=== PATIENT | female | born 1935 | race Hispanic/Latino ===

== ENCOUNTER 2017-06-14 20:27 | Observation (INO) | payer OTHER ==
[~2017-06-14] VITALS: Ht 175.3 cm; Wt 81.6 kg
[2017-06-14 21:59] LABS: BASOPHILS % (AUTO) 0.6 % (0.0-5.0); EOSINOPHILS % (AUTO) 1.7 % (0.0-8.0); LYMPHOCYTES % (AUTO) 28.2 % (21.0-51.0); MEAN CORPUSCULAR HEMOGLOBIN 28.4 pg (27.0-33.0); MEAN CORPUSCULAR HGB CONC 34.5 g/dL (32.0-36.0); MEAN CORPUSCULAR VOLUME 82.2 fL (79-99); NEUTROPHILS % (AUTO) 63.5 % (40.0-77.0); PLATELET COUNT (AUTO) 219 K/uL (130-400); RED BLOOD CELL COUNT(AUTO) 3.64 MIL/uL (4.00-5.50); WHITE BLOOD COUNT (AUTO) 8.8 K/uL (4.8-10.8)
[2017-06-14 22:12] LABS: INR 1.02 (0.85-1.15); PARTIAL THROMBOPLASTIN TIME 25.8 SEC (26.3-35.5); PROTHROMBIN TIME 10.7 SEC (9.6-11.6)
[2017-06-14 22:25] LABS: CARBON DIOXIDE 27 mmol/L (21-32); CHLORIDE 101 mmol/L (101-111); GLOMERULAR FILTR. RATE CALC 56 mL/min (>60); GLUCOSE,RANDOM 103 mg/dL (70-105); POTASSIUM 3.7 mmol/L (3.5-5.1); SODIUM SERUM 139 mmol/L (136-145); UREA NITROGEN, BLOOD 14 mg/dL (7-18)
[2017-06-14] MEDS ORDERED: LABETALOL HCL 5 MG/ML 20ML VIAL IV ONE (22:38)
[2017-06-14] MEDS ORDERED: SODIUM CHLORIDE 0.9% 1000ML 1,000 ML IV ONE (22:38)
[2017-06-14 22:39] LABS: ALANINE AMINOTRANSFERASE 17 U/L (12-78); ALBUMIN 3.4 g/dL (3.5-5.0); ASPARTATE AMINOTRANSFERASE 23 U/L (10-37); BILIRUBIN,TOTAL 0.6 mg/dL (0.2-1.0); CREATINE KINASE MB < 0.5 ng/mL (0.5-3.6); CREATINE KINASE, TOTAL 38 U/L (21-232); TOTAL PROTEIN, SERUM 7.5 g/dL (6.0-8.3)
[2017-06-14 22:51] LABS: APPEARANCE,URINE Clear (CLEAR); BILIRUBIN,URINE Negative (NEGATIVE); COLOR,URINE Yellow (YELLOW); GLUCOSE, URINE (UA) Negative (NEGATIVE); KETONES,URINE Trace mg/dL (NEGATIVE); LEUKOCYTE ESTERASE ,URINE Negative (NEGATIVE); NITRATE,URINE Negative (NEGATIVE); OCCULT BLOOD,URINE Trace (NEGATIVE); PH,URINE 7.5 (5.0-8.0); PROTEIN,URINE POS 1+ (NEGATIVE); UROBILINOGEN,URINE 0.2 mg/dL (0.2-1.0)
[2017-06-14] MEDS ORDERED: ISOVUE-370 50ML VIAL IV ONE (23:03)
[2017-06-14 23:04] LABS: BACTERIA,URINE None Seen /HPF (None Seen); SQUAMOUS EPITHELIAL CELL,UR Few /LPF (0-2); WBC,URINE None Seen /HPF (0-1)
[2017-06-15] VITALS (8 sets, daily range): BP systolic 136–196; BP diastolic 51–88
[2017-06-15] MEDS ORDERED: FERR-82 PO (01:36)
[2017-06-15] MEDS ORDERED: ASCO10007 PO (01:36)
[2017-06-15] MEDS ORDERED: FISH1CAP50 PO (01:36)
[2017-06-15] MEDS ORDERED: VITA1CAP85 PO (01:36)
[2017-06-15] MEDS ORDERED: AEC81 PO (01:36)
[2017-06-15] MEDS ORDERED: CHOL100040 PO (01:36)
[2017-06-15] MEDS ORDERED: FOLI0.8C PO (01:36)
[2017-06-15] MEDS ORDERED: MULT-1296 PO (01:36)
[2017-06-15] MEDS ORDERED: WARF7.5T23 PO (01:36)
[2017-06-15] MEDS ORDERED: PRAV10TA39 PO (01:36)
[2017-06-15] MEDS ORDERED: CALC1TAB3 PO (01:36)
[2017-06-15] MEDS ORDERED: CYAN50008 PO (01:36)
[2017-06-15] MEDS ORDERED: FOLI1TAB85 PO (01:36)
[2017-06-15] MEDS ORDERED: POTASSIUM CHLORIDE 20 MEQ ERTAB PO PRN (02:00)
[2017-06-15] MEDS ORDERED: POTASSIUM CHLORIDE 20MEQ/100ML 100 ML IV PRN (02:00)
[2017-06-15] MEDS ORDERED: ACETAMINOPHEN 325 MG TAB PO PRN ×2 (02:00)
[2017-06-15] MEDS ORDERED: LACTULOSE 20 GM/30 ML UDCUP PO PRN (02:00)
[2017-06-15] MEDS ORDERED: DEXTROSE 50%-WATER 50 ML DISP.SYRIN IV PRN (02:00)
[2017-06-15] MEDS ORDERED: HYDRALAZINE HCL 20 MG/ML VIAL IV PRN (02:00)
[2017-06-15] MEDS ORDERED: POTASSIUM CHLORIDE 10% ELIXIR 20 MEQ/15 ML UDCUP PO PRN (02:00)
[2017-06-15] MEDS ORDERED: ONDANSETRON HCL 4 MG/2 ML VIAL IVP PRN (02:00)
[2017-06-15] MEDS ORDERED: LIDOCAINE HCL-MPF 1% 2ML VIAL IJ PRN (02:00)
[2017-06-15] MEDS ORDERED: GLUCAGON 1MG KIT 1 MG ML IM PRN (02:00)
[2017-06-15] MEDS ORDERED: NITROGLYCERIN 0.4 MG SL TAB SL PRN (02:00)
[2017-06-15 04:44] LABS: HEMATOCRIT 27.7 % (36-48); MEAN CORPUSCULAR HEMOGLOBIN 27.2 pg (27.0-33.0); MEAN CORPUSCULAR HGB CONC 33.4 g/dL (32.0-36.0); MEAN CORPUSCULAR VOLUME 81.6 fL (79-99); PLATELET COUNT (AUTO) 186 K/uL (130-400); RED BLOOD CELL COUNT(AUTO) 3.39 MIL/uL (4.00-5.50); RED CELL DISTRIBUTION WIDTH 14.9 % (11.0-15.5); WHITE BLOOD COUNT (AUTO) 6.8 K/uL (4.8-10.8)
[2017-06-15 04:48] LABS: CREATININE 0.9 mg/dL (0.5-1.5); POTASSIUM 3.8 mmol/L (3.5-5.1)
[2017-06-15] MEDS: INSULIN R PO SS1 SQ SCH ×3 (06:11→16:15)
[2017-06-15] MEDS ORDERED: CYANOCOBALAMIN 5000 MCG PO SCH (09:00)
[2017-06-15] MEDS ORDERED: VITAMIN B COMPLEX 1 CAPSULE PO SCH (09:00)
[2017-06-15] MEDS ORDERED: FE FUMARATE/FA/MV, MIN COMB#15 1 TAB PO SCH (09:00)
[2017-06-15] MEDS ORDERED: FOLIC ACID 0.8 MG PO SCH (09:00)
[2017-06-15] MEDS ORDERED: ASPIRIN 81 MG EC TAB PO SCH (09:00)
[2017-06-15] MEDS ORDERED: CALCIUM 600 + VITAMIN D 400 TABLET PO SCH (09:00)
[2017-06-15] MEDS ORDERED: CHOLECALCIFEROL 1000 UNIT PO SCH (09:00)
[2017-06-15] MEDS ORDERED: ASCORBIC ACID 500 MG TAB PO SCH (09:02)
[2017-06-15] MEDS ORDERED: LOSARTAN 50 MG TABLET PO SCH (10:15)
[2017-06-15] MEDS ORDERED: LOSA50TA37 PO (10:17)
[2017-06-15] MEDS ORDERED: WARFARIN SODIUM 7.5 MG TAB PO SCH (17:00)
[2017-06-15] MEDS ORDERED: ATORVASTATIN CALCIUM 10 MG TABLET PO SCH (21:00)
[2017-06-16] MEDS ORDERED: FERROUS SULFATE 325 MG TABLET.DR PO SCH (09:00)
[2017-06-16] MEDS ORDERED: FISH OIL 1000 MG/CAP PO SCH (09:00)
[2017-06-16] MEDS ORDERED: VITAMIN B COMPLEX 1 CAPSULE PO SCH (09:00)
[2017-06-16] MEDS ORDERED: LOSARTAN 50 MG TABLET PO SCH (09:00)
== END 2017-06-15 18:45 | disposition home or self-care (01) ==
LOC: EDH 20:27 → INTOOBSV 23:30 → EDHIP 23:30 → 2DH 06-15 00:58
PROVIDERS: ADMIT Internal Medicine; ATTEND Internal Medicine
DX: I16.0 Hypertensive urgency (principal); I13.0 Hypertensive heart and chronic kidney disease with heart failure and stage 1 through stage 4 chronic kidney disease, or unspecified chronic kidney disease; N18.9 Chronic kidney disease, unspecified; I50.42 Chronic combined systolic (congestive) and diastolic (congestive) heart failure; I25.2 Old myocardial infarction; I25.10 Atherosclerotic heart disease of native coronary artery without angina pectoris; I48.91 Unspecified atrial fibrillation; E78.5 Hyperlipidemia, unspecified; M81.0 Age-related osteoporosis without current pathological fracture; G93.9 Disorder of brain, unspecified; Z79.01 Long term (current) use of anticoagulants
CPT/HCPCS: 36415 ×2; 70450; 70460; 71045; 80048; 80053; 81001; 82550; 82553; 82948 ×3; 83880; 85025; 85027; 85610; 85730; 93005; 96374; 99285; G0378 ×19; J0360 ×2; J3490; J7030; Q9967

== ENCOUNTER → 2018-09-25 | Outpatient (CLI) | payer OTHER ==
[~2018-09-25] MED LIST: AEC81 PO; ASCO10007 PO; CALC1TAB3 PO; CHOL100040 PO; CYAN50008 PO; FERR-82 PO; FISH1CAP50 PO; FOLI0.8C PO; FOLI1TAB85 PO; LOSA50TA64 PO; MULT-1296 PO; PRAV10TA39 PO; VITA1CAP85 PO; WARF7.5T23 PO
== END | disposition home or self-care (01) ==
LOC: RAH 11:12
PROVIDERS: ATTEND Neuromusculoskeletal Medicine & OMM
DX: G31.89 Other specified degenerative diseases of nervous system (principal); R90.82 White matter disease, unspecified; G93.89 Other specified disorders of brain
CPT/HCPCS: 70450

== ENCOUNTER → 2018-11-16 | Outpatient (CLI) | payer OTHER ==
[~2018-11-16] MED LIST changes: +APIX5TAB PO; +CEPH250C2 PO; +HYDR25TA PO; +MECL-111 PO; +MECL12.585 PO
== END | disposition home or self-care (01) ==
LOC: RAH 09:00
PROVIDERS: ATTEND Internal Medicine Cardiovascular Disease
DX: I08.0 Rheumatic disorders of both mitral and aortic valves (principal); I25.2 Old myocardial infarction
CPT/HCPCS: 93306

== ENCOUNTER 2019-08-20 20:44 | Inpatient (IN) | payer OTHER, MEDICARE ==
[~2019-08-20] VITALS: Ht 175.3 cm; Wt 84.2 kg
[~2019-08-20 20:44] MED LIST changes: -AEC81 PO; +ASCO100031 PO; -ASCO10007 PO; -FOLI1TAB85 PO; -MECL-111 PO; +MECL-160 PO; +MECL-183 PO; -MECL12.585 PO; -WARF7.5T23 PO
[2019-08-20] MEDS ORDERED: LIDOCAINE HCL 2% VISCOUS 15 ML UDCUP ONE (21:33)
[2019-08-20] MEDS ORDERED: MAG HYDROX/AL HYDROX/SIMETH ES 30 ML SUSP UDCUP ONE (21:33)
[2019-08-20] MEDS ORDERED: FAMOTIDINE/PF 20 MG/2 ML VIAL IV ONE (21:35)
[2019-08-20 21:36] LABS: BASOPHILS % (AUTO) 0.5 % (0.0-5.0); EOSINOPHILS % (AUTO) 2.6 % (0.0-8.0); HEMATOCRIT 32.5 % (36-48); LYMPHOCYTES % (AUTO) 48.8 % (21.0-51.0); MEAN CORPUSCULAR HEMOGLOBIN 27.7 pg (27.0-33.0); MEAN CORPUSCULAR HGB CONC 32.6 g/dL (32.0-36.0); MEAN CORPUSCULAR VOLUME 85.1 fL (79-99); MONOCYTES % (AUTO) 8.6 % (3.0-13.0); NEUTROPHILS % (AUTO) 39.3 % (40.0-77.0); PLATELET COUNT (AUTO) 209 K/uL (130-400); RED BLOOD CELL COUNT(AUTO) 3.82 MIL/uL (4.00-5.50); RED CELL DISTRIBUTION WIDTH 13.4 % (11.0-15.5); WHITE BLOOD COUNT (AUTO) 9.3 K/uL (4.8-10.8)
[2019-08-20 21:57] LABS: APPEARANCE,URINE Clear (CLEAR); BILIRUBIN,URINE Negative (NEGATIVE); COLOR,URINE Orange (YELLOW); CREATININE 1.3 mg/dL (0.5-1.5); GLUCOSE, URINE (UA) Negative (NEGATIVE); KETONES,URINE Trace mg/dL (NEGATIVE); LEUKOCYTE ESTERASE ,URINE Small (NEGATIVE); NITRATE,URINE Negative (NEGATIVE); OCCULT BLOOD,URINE Negative (NEGATIVE); POTASSIUM 3.9 mmol/L (3.5-5.1); PROTEIN,URINE POS 1+ mg/dL (NEGATIVE)
[2019-08-20 22:01] LABS: ALBUMIN 3.6 g/dL (3.5-5.0); BILIRUBIN,TOTAL 0.2 mg/dL (0.2-1.0); TOTAL PROTEIN, SERUM 7.7 g/dL (6.0-8.3)
[2019-08-20 22:21] LABS: RBC,URINE 0-1 /HPF (0-1)
[2019-08-20 22:22] LABS: BACTERIA,URINE Rare /HPF (None Seen); HYALINE CASTS, URINE 0-1 /LPF (0-1 /LPF); SQUAMOUS EPITHELIAL CELL,UR Rare /HPF (0-2)
[2019-08-21] MEDS ORDERED: MORPHINE SULFATE 2 MG/ML 1ML SYG IV PRN (00:30)
[2019-08-21] MEDS ORDERED: HYDRALAZINE HCL 20 MG/ML VIAL IV PRN (00:30)
[2019-08-21] MEDS ORDERED: NITROGLYCERIN 0.4 MG SL TAB SL PRN (00:30)
[2019-08-21] MEDS ORDERED: ONDANSETRON HCL 4 MG/2 ML VIAL IV PRN (00:30)
[2019-08-21] MEDS ORDERED: ACETAMINOPHEN 325 MG TAB PO PRN ×2 (00:30)
[2019-08-21] MEDS ORDERED: LACTULOSE 20 GM/30 ML UDCUP PO PRN (00:30)
[2019-08-21 01:24] LABS: THYROID STIMULATING HORMONE 2.81 uIU/mL (0.36-3.74)
[2019-08-21 01:50] VITALS: BP 153/68
--- NOTE | 2019-08-21 02:00 | NUR ---
PATIENT ARRIVED ON UNIT. ALERT AND ORIENTED. PATIENT DENIES CHEST PAIN,INDIGESTION, OR SOB. RESTING COMFORTABLY. CALL LIGHT WITHIN REACH. HOME MEDS TO BE BROUGHT IN BY FAMILY.
[2019-08-21 04:00] VITALS: BP 143/63
[2019-08-21 04:31] LABS: BASOPHILS % (AUTO) 0.3 % (0.0-5.0); HEMATOCRIT 29.6 % (36-48); MEAN CORPUSCULAR HEMOGLOBIN 27.7 pg (27.0-33.0); MEAN CORPUSCULAR HGB CONC 32.8 g/dL (32.0-36.0); MEAN CORPUSCULAR VOLUME 84.6 fL (79-99); MONOCYTES % (AUTO) 8.6 % (3.0-13.0); NEUTROPHILS % (AUTO) 58.8 % (40.0-77.0); PLATELET COUNT (AUTO) 175 K/uL (130-400); RED CELL DISTRIBUTION WIDTH 13.2 % (11.0-15.5)
[2019-08-21 05:11] LABS: CREATININE 1.2 mg/dL (0.5-1.5); POTASSIUM 4.5 mmol/L (3.5-5.1)
--- NOTE | 2019-08-21 05:52 | NUR ---
LIZANDRO PAGED FOR TROPONIN OF 2.37. PATIENT CURRENTLY DENIES CHEST PAIN.
--- NOTE | 2019-08-21 06:45 | NUR ---
KELSEY PAGED FOR ELEVATED TROPONIN
--- NOTE | 2019-08-21 07:18 | NUR ---
KELSEY RETURNED CALL. WILL SEE PATIENT. NO NEW ORDERS PER KELSEY PUT PATIENT ON [facility]
[2019-08-21 07:30] VITALS: BP 143/63
[2019-08-21] MEDS: FAMOTIDINE 20MG TAB 20 MG TAB PO SCH (08:24)
[2019-08-21] MEDS: METOPROLOL TARTRATE 25 MG TAB PO SCH ×2 (08:24→20:10)
[2019-08-21] MEDS ORDERED: ASPIRIN 81MG TAB.CHEW PO SCH (09:00)
[2019-08-21] MEDS ORDERED: ENOXAPARIN SODIUM 40 MG/0.4 ML SYRINGE SQ SCH (09:00)
[2019-08-21] MEDS ORDERED: HEPARIN 25000 UNITS/250 ML D5W 250 ML IV SCH (11:15)
[2019-08-21 11:30] VITALS: BP 136/66
[2019-08-21] MEDS: NITROGLYCERIN 1GM/1 INCH PACKET TD SCH ×2 (11:59→18:38)
[2019-08-21 15:30] VITALS: BP 134/64
--- NOTE | 2019-08-21 15:31 | NUR ---
FAMILY UPDATE With 's permission, pt's son in law was briefly updated by phone regarding pt's current status and plan of care as received from . Questions addressed.
--- NOTE | 2019-08-21 19:01 | NUR ---
D/C PLAN CM spoke to pt regarding d/c planning. Pt is ind. and lives with daughter. States she has a provider about 30 hrs/week. Has a cane and walker. States she still drives and daughter assists with transportation when needed. Plan to home. No needs verbalized or identified. Addendum: 08/21/19 at 1902 by SAMY NEIL CM Amended: Links added.
[2019-08-21 20:00] VITALS: BP 124/58
[2019-08-21] MEDS: ATORVASTATIN CALCIUM 20 MG TABLET PO SCH (20:10)
[2019-08-21 20:40] LABS: PROTHROMBIN TIME 10.8 SEC (9.6-11.6)
[2019-08-21 21:17] LABS: PARTIAL THROMBOPLASTIN TIME > 120.0 SEC (26.3-35.5)
--- NOTE | 2019-08-21 21:30 | NUR ---
Patient alert and oriented. Denies chest pain or sob. Currently on a heparin drip. PTT was >120. Heparin drip stopped for 60 min. No s/s of bleeding. will follow heparin drip protocol
[2019-08-21] MEDS: HEPARIN 25000 UNITS/250 ML D5W 250 ML IV SCH (22:35)
--- NOTE | 2019-08-21 22:35 | NUR ---
Resumed heparin drip. Made changes to drip according to protocol.
[2019-08-22] VITALS (7 sets, daily range): BP systolic 118–134; BP diastolic 53–60
[2019-08-22] MEDS: NITROGLYCERIN 1GM/1 INCH PACKET TD SCH ×5 (00:04→23:30)
[2019-08-22 04:40] LABS: BASOPHILS % (AUTO) 0.6 % (0.0-5.0); EOSINOPHILS % (AUTO) 0.9 % (0.0-8.0); HEMATOCRIT 28.6 % (36-48); LYMPHOCYTES % (AUTO) 37.3 % (21.0-51.0); MEAN CORPUSCULAR HEMOGLOBIN 27.1 pg (27.0-33.0); MEAN CORPUSCULAR HGB CONC 32.2 g/dL (32.0-36.0); MEAN CORPUSCULAR VOLUME 84.1 fL (79-99); MONOCYTES % (AUTO) 8.4 % (3.0-13.0); NEUTROPHILS % (AUTO) 52.5 % (40.0-77.0); PLATELET COUNT (AUTO) 174 K/uL (130-400); RED CELL DISTRIBUTION WIDTH 13.2 % (11.0-15.5); WHITE BLOOD COUNT (AUTO) 6.9 K/uL (4.8-10.8)
[2019-08-22 05:09] LABS: PROTHROMBIN TIME 10.8 SEC (9.6-11.6)
[2019-08-22 05:28] LABS: PARTIAL THROMBOPLASTIN TIME > 120.0 SEC (26.3-35.5)
[2019-08-22] MEDS: METOPROLOL TARTRATE 25 MG TAB PO SCH ×2 (08:25→20:06)
[2019-08-22] MEDS: FAMOTIDINE 20MG TAB 20 MG TAB PO SCH (08:25)
[2019-08-22] MEDS: HEPARIN 25000 UNITS/250 ML D5W 250 ML IV SCH (10:51)
[2019-08-22] MEDS: ATORVASTATIN CALCIUM 20 MG TABLET PO SCH (20:06)
[2019-08-23] VITALS (16 sets, daily range): BP systolic 114–137; BP diastolic 45–59
[2019-08-23] MEDS: NITROGLYCERIN 1GM/1 INCH PACKET TD SCH ×4 (06:03→23:45)
[2019-08-23 06:29] LABS: CREATININE 1.4 mg/dL (0.5-1.5); POTASSIUM 3.9 mmol/L (3.5-5.1)
--- NOTE | 2019-08-23 07:30 | NUR ---
ASSESSMENT ENCOUNTERED PT IN SEMI ROHT'S POSITION, A&OX3, CALM COOPERATIVE AND DOES NOT APPEAR TO BE IN ANY DISTRESS OR ANY NEURO DEFICITS PRESENT. PT DENIES PAIN, SOB, NAUSEA. PT IS AMBULATORY, GAIT STEADY AND STRONG WITH STAND BY ASSIST. PT IS ON HEPARIN DRIP PER PROTOCOL. PT IS NPO PENDING FOR POSSIBLE LHC BY DR CASTRO. CALL LIGHT WITHIN REACH.
[2019-08-23] MEDS ORDERED: PRAV10TA39 PO (08:30)
[2019-08-23] MEDS ORDERED: OLOP2.5D6 OU (08:30)
[2019-08-23] MEDS: FAMOTIDINE 20MG TAB 20 MG TAB PO SCH (09:58)
[2019-08-23] MEDS: METOPROLOL TARTRATE 25 MG TAB PO SCH ×2 (09:58→20:43)
[2019-08-23] MEDS: HEPARIN 25000 UNITS/250 ML D5W 250 ML IV SCH (12:11)
--- NOTE | 2019-08-23 13:00 | NUR ---
HEPARIN DISCONTINUED. PER DR CASTRO, PIPER CHAVEZ RN TELEPHONE ORDER.
[2019-08-23] MEDS ORDERED: MIDAZOLAM HCL 1 MG/ML 2ML VIAL ONE (16:26)
[2019-08-23] MEDS ORDERED: NITROGLYCERIN 2 MG/VIAL VIAL IV ONE (16:26)
[2019-08-23] MEDS ORDERED: IOHEXOL 350 MG/ML 100ML INFUS..BTL IV ONE (16:26)
[2019-08-23] MEDS ORDERED: IOHEXOL-350 50ML VIAL IV ONE (16:26)
[2019-08-23] MEDS ORDERED: SODIUM BICARB 50MEQ 50ML VIAL ONE (16:26)
[2019-08-23] MEDS ORDERED: HEPARIN SODIUM 1000UNIT/ML 10ML VIAL ONE (16:26)
[2019-08-23] MEDS ORDERED: FENTANYL CITRATE PF 50 MCG/1 ML 2ML VIAL ONE (16:27)
[2019-08-23] MEDS ORDERED: LIDOCAINE HCL 2% 20ML ONE (16:27)
[2019-08-23] MEDS ORDERED: NICARDIPINE HCL 25 MG/10 ML ML IV ONE (16:29)
[2019-08-23] MEDS ORDERED: BIVALIRUDIN 250 MG/VIAL IV ONE (16:53)
[2019-08-23] MEDS ORDERED: LABETALOL HCL 5 MG/ML 20ML VIAL IV ONE ×2 (17:36→17:58)
--- NOTE | 2019-08-23 18:20 | NUR ---
POST PROCEDURE RECEIVED PT FROM MANAGER MACHINE, IN FLAT POSITION, A&OX3, CALM COOPERATIVE AND DOES NOT APPEAR TO BE IN ANY DISTRESS NOR ANY DISTRESS NOR ANY NEURO DEFICIT PRESENT. RT AND LEFT GROIN SOFT NONTENDER WITH NO OOZING OR HEMATOMA PRESENT. DP/PT PULSES PALPABLE. PT ON BEDREST UNTIL 2044. PT RESTING COMFORTABLY, CALL LIGHT WITHIN REACH.
[2019-08-23] MEDS: SODIUM CHLORIDE 0.9% 1000ML 1,000 ML IV SCH (19:15)
[2019-08-23] MEDS: ATORVASTATIN CALCIUM 20 MG TABLET PO SCH (20:43)
[2019-08-24 03:30] VITALS: BP 129/53
[2019-08-24 04:09] LABS: HEMATOCRIT 22.3 % (36-48); MEAN CORPUSCULAR HEMOGLOBIN 27.9 pg (27.0-33.0); MEAN CORPUSCULAR HGB CONC 33.2 g/dL (32.0-36.0); MEAN CORPUSCULAR VOLUME 84.2 fL (79-99); RED BLOOD CELL COUNT(AUTO) 2.65 MIL/uL (4.00-5.50); RED CELL DISTRIBUTION WIDTH 13.2 % (11.0-15.5); WHITE BLOOD COUNT (AUTO) 7.9 K/uL (4.8-10.8)
[2019-08-24 04:32] LABS: CREATININE 1.1 mg/dL (0.5-1.5); POTASSIUM 3.8 mmol/L (3.5-5.1)
[2019-08-24] MEDS: NITROGLYCERIN 1GM/1 INCH PACKET TD SCH ×4 (05:35→23:23)
[2019-08-24] MEDS: SODIUM CHLORIDE 0.9% 1000ML 1,000 ML IV SCH ×2 (07:45→20:15)
[2019-08-24 08:41] VITALS: BP 120/49
--- NOTE | 2019-08-24 11:30 | NUR ---
CT ABDOMEN/PELVIS WITHOUT CONTRAST COMPLETED. PENDING RESULTS, POSSIBLE DISMISSAL HOME TODAY.
[2019-08-24 11:48] VITALS: BP 138/50
[2019-08-24] MEDS: FAMOTIDINE 20MG TAB 20 MG TAB PO SCH (12:14)
[2019-08-24] MEDS: METOPROLOL TARTRATE 25 MG TAB PO SCH ×2 (12:14→20:36)
[2019-08-24 16:09] VITALS: BP 125/49
--- NOTE | 2019-08-24 19:00 | NUR ---
INITIATED BLOOD TRANSFUSION. WILL CONTINUE TO MONITOR.
[2019-08-24] MEDS ORDERED: SIMETHICONE 80 MG TAB.CHEW PO PRN (19:15)
[2019-08-24 20:05] VITALS: BP 136/53
[2019-08-24] MEDS: ATORVASTATIN CALCIUM 20 MG TABLET PO SCH (20:35)
--- NOTE | 2019-08-24 22:00 | NUR ---
POST TRANSFUSION PATIENT AWAKE AND ALERT. BLOOD TRANSFUSION COMPLETED. NO ADVERSE REACTIONS NOTED. VITALS STABLE. AFEBRILE. NO SIGNS OF DISTRESS NOTED. RESP EVEN AND UNLABORED. NO SOB NOTED. ON ROOM AIR. AV PACED ON TELEMETRY. NO ACTIVE BLEEDING NOTED. FALL PRECAUTIONS IN PLACE. SIDE RAILS UP X2. CALL LIGHT WITHIN REACH. WILL CONTINUE TO BE OBSERVED. Addendum: 08/25/19 at 0020 by SANDRA DONIS RN RN Amended: Links added.
[2019-08-24 22:49] VITALS: BP 145/58
[2019-08-25 01:30] LABS: HEMATOCRIT 25.1 % (36-48); MEAN CORPUSCULAR HGB CONC 33.1 g/dL (32.0-36.0); MEAN CORPUSCULAR VOLUME 84.8 fL (79-99); RED BLOOD CELL COUNT(AUTO) 2.96 MIL/uL (4.00-5.50); RED CELL DISTRIBUTION WIDTH 13.7 % (11.0-15.5); WHITE BLOOD COUNT (AUTO) 8.4 K/uL (4.8-10.8)
[2019-08-25 03:54] VITALS: BP 138/54
[2019-08-25 05:16] LABS: BASOPHILS % (AUTO) 0.3 % (0.0-5.0); EOSINOPHILS % (AUTO) 0.9 % (0.0-8.0); HEMATOCRIT 24.5 % (36-48); LYMPHOCYTES % (AUTO) 27.5 % (21.0-51.0); MEAN CORPUSCULAR HGB CONC 33.5 g/dL (32.0-36.0); MEAN CORPUSCULAR VOLUME 83.6 fL (79-99); MONOCYTES % (AUTO) 11.8 % (3.0-13.0); NEUTROPHILS % (AUTO) 58.4 % (40.0-77.0); PLATELET COUNT (AUTO) 137 K/uL (130-400); RED BLOOD CELL COUNT(AUTO) 2.93 MIL/uL (4.00-5.50); RED CELL DISTRIBUTION WIDTH 13.6 % (11.0-15.5)
[2019-08-25] MEDS: NITROGLYCERIN 1GM/1 INCH PACKET TD SCH ×2 (05:45→11:45)
[2019-08-25 08:00] VITALS: BP 148/61
[2019-08-25] MEDS: FAMOTIDINE 20MG TAB 20 MG TAB PO SCH (08:33)
[2019-08-25] MEDS: METOPROLOL TARTRATE 25 MG TAB PO SCH (08:33)
[2019-08-25 11:30] VITALS: BP 131/58
[2019-08-25] MEDS ORDERED: METO25 PO (15:32)
[2019-08-25] MEDS ORDERED: ATOR20TA65 PO (15:32)
== END 2019-08-25 16:19 | disposition home or self-care (01) | DRG 280 ==
LOC: EDH 20:44 → EDHIP 23:35 → 4CH 08-21 01:19
PROVIDERS: ADMIT Internal Medicine; ATTEND Internal Medicine
PROC: 4A023N7 Measurement of Cardiac Sampling and Pressure, Left Heart, Percutaneous Approach (ICD-10-PCS; 2019-08-23)
PROC: B211YZZ Fluoroscopy of Multiple Coronary Arteries using Other Contrast (ICD-10-PCS; 2019-08-23)
PROC: 30233N1 Transfusion of Nonautologous Red Blood Cells into Peripheral Vein, Percutaneous Approach (ICD-10-PCS; principal; 2019-08-24)
DX: I21.4 Non-ST elevation (NSTEMI) myocardial infarction (principal); I50.23 Acute on chronic systolic (congestive) heart failure; K66.1 Hemoperitoneum; I13.0 Hypertensive heart and chronic kidney disease with heart failure and stage 1 through stage 4 chronic kidney disease, or unspecified chronic kidney disease; D62 Acute posthemorrhagic anemia; I42.0 Dilated cardiomyopathy; I48.20 Chronic atrial fibrillation, unspecified; R71.0 Precipitous drop in hematocrit; I51.81 Takotsubo syndrome; N18.9 Chronic kidney disease, unspecified; E78.5 Hyperlipidemia, unspecified; I48.91 Unspecified atrial fibrillation; I25.10 Atherosclerotic heart disease of native coronary artery without angina pectoris; Z95.0 Presence of cardiac pacemaker; I25.2 Old myocardial infarction; Z79.82 Long term (current) use of aspirin; Z79.01 Long term (current) use of anticoagulants; Z79.899 Other long term (current) drug therapy; Z82.49 Family history of ischemic heart disease and other diseases of the circulatory system
CPT/HCPCS: 36415; 36430; 70450; 74176; 80048; 80053; 80061; 81001; 82948; 83690; 83735; 83880; 84145; 84443; 84484; 85025; 85027; 85610; 85730; 86850; 86900; 86901; 86922; 93005; 93306; 93356; 93454; C1769; C1894; G0378; J0583; J1644; J1650; J2250; J2405; J3010; J3490; P9016; Q9967

== ENCOUNTER 2019-09-02 12:05 | Observation (INO) | payer OTHER, MEDICARE ==
[~2019-09-02 12:05] MED LIST changes: -ASCO100031 PO; +ASCO10007 PO; +ATOR20TA65 PO; -CEPH250C2 PO; +METO25 PO; +OLOP2.5D6 OU; -PRAV10TA39 PO
[2019-09-02 13:01] LABS: BASOPHILS % (AUTO) 0.6 % (0.0-5.0); EOSINOPHILS % (AUTO) 1.6 % (0.0-8.0); HEMATOCRIT 27.7 % (36-48); LYMPHOCYTES % (AUTO) 24.2 % (21.0-51.0); MEAN CORPUSCULAR HEMOGLOBIN 27.6 pg (27.0-33.0); MEAN CORPUSCULAR HGB CONC 32.1 g/dL (32.0-36.0); MONOCYTES % (AUTO) 11.6 % (3.0-13.0); NEUTROPHILS % (AUTO) 61.7 % (40.0-77.0); PLATELET COUNT (AUTO) 252 K/uL (130-400); RED BLOOD CELL COUNT(AUTO) 3.22 MIL/uL (4.00-5.50); RED CELL DISTRIBUTION WIDTH 13.4 % (11.0-15.5); WHITE BLOOD COUNT (AUTO) 6.8 K/uL (4.8-10.8)
[2019-09-02 13:13] LABS: INR 0.96 (0.85-1.15); PARTIAL THROMBOPLASTIN TIME 27.6 SEC (26.3-35.5); PROTHROMBIN TIME 10.4 SEC (9.6-11.6)
[2019-09-02 13:14] LABS: POTASSIUM 4.7 mmol/L (3.5-5.1)
[2019-09-02 13:19] LABS: BILIRUBIN,TOTAL 0.8 mg/dL (0.2-1.0); TOTAL PROTEIN, SERUM 7.2 g/dL (6.0-8.3)
[2019-09-02] MEDS ORDERED: IOHEXOL 350 MG/ML 100ML INFUS..BTL IV ONE (13:38)
[2019-09-02 15:11] LABS: APPEARANCE,URINE Clear (CLEAR); BILIRUBIN,URINE Negative (NEGATIVE); COLOR,URINE Yellow (YELLOW); GLUCOSE, URINE (UA) Negative (NEGATIVE); KETONES,URINE Negative (NEGATIVE); LEUKOCYTE ESTERASE ,URINE Negative (NEGATIVE); NITRATE,URINE Negative (NEGATIVE); OCCULT BLOOD,URINE Negative (NEGATIVE); PROTEIN,URINE Negative (NEGATIVE)
[2019-09-02] MEDS ORDERED: GUAIFENESIN-DM 200/20 MG 10 ML PO PRN (17:30)
[2019-09-02] MEDS ORDERED: POTASSIUM CHLORIDE 20MEQ/100ML 100 ML IV PRN (17:30)
[2019-09-02] MEDS ORDERED: POTASSIUM CHLORIDE 10% ELIXIR 20 MEQ/15 ML UDCUP PO PRN (17:30)
[2019-09-02] MEDS ORDERED: LIDOCAINE HCL-MPF 1% 2ML VIAL IV PRN (17:30)
[2019-09-02] MEDS ORDERED: ONDANSETRON HCL 4 MG/2 ML VIAL IV PRN (17:30)
[2019-09-02] MEDS ORDERED: ZOLPIDEM TARTRATE 5 MG TAB PO PRN (17:30)
[2019-09-02] MEDS ORDERED: MAG HYDROX/AL HYDROX/SIMETH ES 30 ML SUSP UDCUP PO PRN (17:30)
[2019-09-02] MEDS ORDERED: DIPHENHYDRAMINE HCL 25 MG CAPSULE PO PRN (17:30)
[2019-09-02] MEDS ORDERED: POTASSIUM CHLORIDE 20 MEQ ERTAB PO PRN (17:30)
[2019-09-02] MEDS ORDERED: ACETAMINOPHEN 325 MG TAB PO PRN ×2 (17:30)
[2019-09-02] MEDS ORDERED: MORPHINE SULFATE 2 MG/ML 1ML SYG IV PRN (17:30)
[2019-09-02] MEDS ORDERED: NITROGLYCERIN 0.4 MG SL TAB SL PRN (17:30)
[2019-09-02] MEDS ORDERED: HYDRALAZINE HCL 20 MG/ML VIAL IV PRN (17:30)
[2019-09-02] MEDS ORDERED: ACETAMINOPHEN-CODEINE 300/30MG TAB PO PRN (17:30)
[2019-09-02] MEDS ORDERED: DiphenhydrAMINE HCL 50 MG/ML VIAL IV PRN (17:30)
[2019-09-02] MEDS ORDERED: MAGNESIUM 2GM PREMIX 50ML 50 ML IV PRN (17:30)
[2019-09-02] MEDS ORDERED: LACTULOSE 20 GM/30 ML UDCUP PO PRN (17:30)
[2019-09-02] MEDS ORDERED: FAMOTIDINE 20MG TAB 20 MG TAB PO SCH (21:00)
[2019-09-02] MEDS ORDERED: FAMOTIDINE 20MG TAB 20 MG TAB ONE (21:09)
[2019-09-02] MEDS ORDERED: INSULIN HUMULIN R 100 UNIT/ML 3ML ONE (21:45)
[2019-09-03 03:02] LABS: BASOPHILS % (AUTO) 0.3 % (0.0-5.0); EOSINOPHILS % (AUTO) 2.5 % (0.0-8.0); HEMATOCRIT 26.1 % (36-48); LYMPHOCYTES % (AUTO) 25.2 % (21.0-51.0); MEAN CORPUSCULAR HEMOGLOBIN 27.5 pg (27.0-33.0); MEAN CORPUSCULAR HGB CONC 32.2 g/dL (32.0-36.0); MEAN CORPUSCULAR VOLUME 85.6 fL (79-99); MONOCYTES % (AUTO) 12.1 % (3.0-13.0); NEUTROPHILS % (AUTO) 59.6 % (40.0-77.0); PLATELET COUNT (AUTO) 243 K/uL (130-400); RED BLOOD CELL COUNT(AUTO) 3.05 MIL/uL (4.00-5.50); RED CELL DISTRIBUTION WIDTH 13.4 % (11.0-15.5); WHITE BLOOD COUNT (AUTO) 6.4 K/uL (4.8-10.8)
[2019-09-03 04:42] LABS: INR 0.99 (0.85-1.15); PARTIAL THROMBOPLASTIN TIME 27.9 SEC (26.3-35.5); PROTHROMBIN TIME 10.7 SEC (9.6-11.6)
[2019-09-03 04:45] LABS: ALBUMIN 2.7 g/dL (3.5-5.0); BILIRUBIN,TOTAL 0.7 mg/dL (0.2-1.0); CREATININE 0.9 mg/dL (0.5-1.5); MAGNESIUM 1.8 mg/dL (1.80-2.40); POTASSIUM 3.5 mmol/L (3.5-5.1); TOTAL PROTEIN, SERUM 6.5 g/dL (6.0-8.3)
[2019-09-03] MEDS ORDERED: MAGNESIUM 2GM PREMIX 50ML 50 ML IV ONE (06:04)
--- NOTE | 2019-09-03 09:17 | NUR ---
DCP: HOME met with pt who states she lives alone but daughter Willow Villaseñor [phone] lives next door. Pt is retired, has provider M-F for 25hrs a week. Pt has walker, cane, and shower chair, no services. PCP is Dr Buck and [facility] is pharm of choice. Plan is home at ut Addendum: 09/03/19 at 0919 by HENRIQUE BOWMAN Amended: Links added.
[2019-09-03] MEDS ORDERED: FAMOTIDINE 20MG TAB 20 MG TAB ONE (12:37)
== END 2019-09-03 17:11 | disposition home or self-care (01) ==
LOC: EDH 12:05 → EDHIP 15:34
PROVIDERS: ADMIT Internal Medicine Pulmonary Disease; ATTEND Internal Medicine Pulmonary Disease
DX: K66.1 Hemoperitoneum (principal); I25.10 Atherosclerotic heart disease of native coronary artery without angina pectoris; E78.5 Hyperlipidemia, unspecified; D62 Acute posthemorrhagic anemia; I48.20 Chronic atrial fibrillation, unspecified; I25.2 Old myocardial infarction; I10 Essential (primary) hypertension; Z79.01 Long term (current) use of anticoagulants
CPT/HCPCS: 36415 ×2; 71045; 74177; 80053 ×2; 81003; 83735; 85018 ×3; 85025 ×2; 85610 ×2; 85730 ×2; 86850; 86900; 86901; 93005; 99291; G0378 ×26; J1815; J3475; Q9967

== ENCOUNTER 2019-09-22 10:46 | Emergency (ER) | payer OTHER, MEDICARE ==
[~2019-09-22 10:46] MED LIST changes: -APIX5TAB PO; +ASCO100031 PO; -ASCO10007 PO
[2019-09-22 11:12] LABS: BASOPHILS % (AUTO) 0.5 % (0.0-5.0); EOSINOPHILS % (AUTO) 2.6 % (0.0-8.0); HEMATOCRIT 30.3 % (36-48); LYMPHOCYTES % (AUTO) 28.7 % (21.0-51.0); MEAN CORPUSCULAR HEMOGLOBIN 27.4 pg (27.0-33.0); MEAN CORPUSCULAR VOLUME 85.6 fL (79-99); MONOCYTES % (AUTO) 9.1 % (3.0-13.0); NEUTROPHILS % (AUTO) 58.9 % (40.0-77.0); PLATELET COUNT (AUTO) 187 K/uL (130-400); RED BLOOD CELL COUNT(AUTO) 3.54 MIL/uL (4.00-5.50); RED CELL DISTRIBUTION WIDTH 14.5 % (11.0-15.5); WHITE BLOOD COUNT (AUTO) 6.2 K/uL (4.8-10.8)
[2019-09-22 11:27] LABS: CREATININE 1.1 mg/dL (0.5-1.5)
[2019-09-22 11:28] LABS: INR 0.98 (0.85-1.15); PARTIAL THROMBOPLASTIN TIME 27.6 SEC (26.3-35.5); PROTHROMBIN TIME 10.6 SEC (9.6-11.6)
[2019-09-22 11:32] LABS: ALBUMIN 3.3 g/dL (3.5-5.0); BILIRUBIN,TOTAL 0.6 mg/dL (0.2-1.0); TOTAL PROTEIN, SERUM 6.7 g/dL (6.0-8.3)
== END 2019-09-22 13:23 | disposition home or self-care (01) ==
LOC: EDH 10:46
DX: R06.00 Dyspnea, unspecified (principal); I48.91 Unspecified atrial fibrillation; I10 Essential (primary) hypertension; M81.0 Age-related osteoporosis without current pathological fracture; Z95.0 Presence of cardiac pacemaker; Z98.890 Other specified postprocedural states
CPT/HCPCS: 36415; 71045; 80053; 83880; 84484; 85025; 85610; 85730; 93005

== ENCOUNTER → 2019-10-22 | Outpatient (CLI) | payer OTHER, MEDICARE | END | disposition home or self-care (01) ==

== ENCOUNTER → 2019-11-29 | Outpatient (CLI) | payer OTHER, MEDICARE | END | disposition home or self-care (01) | LOC: SHCH 10:19 | PROVIDERS: ATTEND Internal Medicine Cardiovascular Disease | DX: I50.22 Chronic systolic (congestive) heart failure (principal) | CPT/HCPCS: 93306; 93356 ==

== ENCOUNTER → 2020-06-29 | Outpatient (CLI) | payer OTHER, MEDICARE ==
[~2020-06-29] MED LIST changes: -MECL-183 PO; +MECL-226 PO
== END | disposition home or self-care (01) ==
LOC: SHCH 09:41
PROVIDERS: ATTEND Internal Medicine Cardiovascular Disease
DX: I08.3 Combined rheumatic disorders of mitral, aortic and tricuspid valves (principal); I25.2 Old myocardial infarction; I50.22 Chronic systolic (congestive) heart failure
CPT/HCPCS: 93306; 93356

== ENCOUNTER 2020-07-22 10:58 | Emergency (ER) | payer OTHER, MEDICARE ==
[2020-07-22 11:24] LABS: BASOPHILS % (AUTO) 0.5 % (0.0-5.0); EOSINOPHILS % (AUTO) 2.2 % (0.0-8.0); HEMATOCRIT 29.6 % (36-48); LYMPHOCYTES % (AUTO) 33.1 % (21.0-51.0); MEAN CORPUSCULAR HEMOGLOBIN 29.6 pg (27.0-33.0); MEAN CORPUSCULAR HGB CONC 33.4 g/dL (32.0-36.0); MEAN CORPUSCULAR VOLUME 88.4 fL (79-99); MONOCYTES % (AUTO) 10.3 % (3.0-13.0); NEUTROPHILS % (AUTO) 53.4 % (40.0-77.0); PLATELET COUNT (AUTO) 251 K/uL (130-400); RED BLOOD CELL COUNT(AUTO) 3.35 MIL/uL (4.00-5.50); WHITE BLOOD COUNT (AUTO) 7.4 K/uL (4.8-10.8)
[2020-07-22 11:36] LABS: ALBUMIN 3.2 g/dL (3.5-5.0); BILIRUBIN,TOTAL 0.5 mg/dL (0.2-1.0); TOTAL PROTEIN, SERUM 6.5 g/dL (6.0-8.3)
[2020-07-22 12:11] LABS: INR 1.13 (0.85-1.15); PARTIAL THROMBOPLASTIN TIME 27.6 SEC (26.3-35.5); PROTHROMBIN TIME 11.6 SEC (9.6-11.6)
[2020-07-22] MEDS ORDERED: FUROSEMIDE 10 MG/ML 4ML VIAL ONE (13:26)
[2020-07-22] MEDS ORDERED: NITROGLYCERIN 1GM/1 INCH PACKET TD ONE (16:18)
== END 2020-07-22 16:42 | disposition home or self-care (01) ==
LOC: EDH 10:58
DX: I11.0 Hypertensive heart disease with heart failure (principal); I50.23 Acute on chronic systolic (congestive) heart failure; E78.5 Hyperlipidemia, unspecified; I48.91 Unspecified atrial fibrillation; Z20.822 Contact with and (suspected) exposure to COVID-19; M81.0 Age-related osteoporosis without current pathological fracture
CPT/HCPCS: 36415; 71045; 80053; 82550; 83605 ×2; 83880; 84145; 84484 ×2; 85025; 85378; 85610; 85730; 87040 ×2; 87426; 93005 ×2; 96374; 99285; J1940; U0003

== ENCOUNTER 2021-07-16 13:50 | Observation (INO) | payer OTHER, MEDICARE ==
[~2021-07-16] VITALS: Ht 172.7 cm; Wt 79.4 kg
[~2021-07-16 13:50] MED LIST changes: -CYAN50008 PO; +CYAN50009 PO; +OLOP2.5D16 OU; -OLOP2.5D6 OU
[2021-07-16 14:19] LABS: BASOPHILS % (AUTO) 0.3 % (0.0-5.0); EOSINOPHILS % (AUTO) 1.4 % (0.0-8.0); LYMPHOCYTES % (AUTO) 34.8 % (21.0-51.0); MEAN CORPUSCULAR HGB CONC 32.9 g/dL (32.0-36.0); MEAN CORPUSCULAR VOLUME 85.2 fL (79-99); PLATELET COUNT (AUTO) 232 K/uL (130-400); RED BLOOD CELL COUNT(AUTO) 3.64 MIL/uL (4.00-5.50); RED CELL DISTRIBUTION WIDTH 12.6 % (11.0-15.5); WHITE BLOOD COUNT (AUTO) 8.6 K/uL (4.8-10.8)
[2021-07-16 14:35] LABS: CREATININE 1.3 mg/dL (0.5-1.5); POTASSIUM 3.6 mmol/L (3.5-5.1)
[2021-07-16 14:39] LABS: ALBUMIN 3.4 g/dL (3.5-5.0); BILIRUBIN,TOTAL 0.5 mg/dL (0.2-1.0); TOTAL PROTEIN, SERUM 6.9 g/dL (6.0-8.3)
[2021-07-16 14:40] LABS: B-TYPE NATRIURETIC PEPTIDE 748 pg/mL (0-100)
[2021-07-16] MEDS ORDERED: 0.9% NACL 250ML 250 ML IV ONE (15:30)
[2021-07-16] MEDS ORDERED: ASPIRIN 325MG EC TAB PO ONE (15:30)
[2021-07-16] MEDS ORDERED: IOHEXOL-350 75 ML VIAL IV ONE (16:10)
[2021-07-16] MEDS ORDERED: FURO-152 PO (20:50)
[2021-07-16] MEDS ORDERED: APIX5TAB PO (20:50)
[2021-07-16] MEDS ORDERED: LOSA100T58 PO (20:50)
[2021-07-16 23:30] VITALS: BP 169/66
[2021-07-17] MEDS ORDERED: IPRATROPIUM/ALBUTEROL SULFATE 3 ML SOLUTION IH PRN (03:30)
[2021-07-17] MEDS ORDERED: ONDANSETRON 4MG INJ IV PRN (03:30)
[2021-07-17] MEDS ORDERED: MAG/ALUM/SIMETH 30 ML UDCUP PO PRN (03:30)
[2021-07-17] MEDS ORDERED: LACTULOSE 20 GM/30 ML UDCUP PO PRN (03:30)
[2021-07-17] MEDS ORDERED: NITROGLYCERIN 0.4 MG SL TAB SL PRN (03:30)
[2021-07-17] MEDS ORDERED: GUAIFENESIN-DM 200/20 MG 10 ML PO PRN (03:30)
[2021-07-17] MEDS ORDERED: ZOLPIDEM TARTRATE 5 MG TAB PO PRN (03:30)
[2021-07-17] MEDS ORDERED: ACETAMINOPHEN 325 MG TAB PO PRN ×2 (03:30)
[2021-07-17 04:00] VITALS: BP 152/69
[2021-07-17 05:09] LABS: BASOPHILS % (AUTO) 0.4 % (0.0-5.0); EOSINOPHILS % (AUTO) 1.6 % (0.0-8.0); HEMATOCRIT 32.4 % (36-48); LYMPHOCYTES % (AUTO) 39.3 % (21.0-51.0); MEAN CORPUSCULAR HEMOGLOBIN 28.2 pg (27.0-33.0); MEAN CORPUSCULAR HGB CONC 32.4 g/dL (32.0-36.0); MEAN CORPUSCULAR VOLUME 86.9 fL (79-99); MONOCYTES % (AUTO) 10.2 % (3.0-13.0); NEUTROPHILS % (AUTO) 48.2 % (40.0-77.0); PLATELET COUNT (AUTO) 224 K/uL (130-400); RED BLOOD CELL COUNT(AUTO) 3.73 MIL/uL (4.00-5.50); RED CELL DISTRIBUTION WIDTH 12.7 % (11.0-15.5)
[2021-07-17 05:23] LABS: POTASSIUM 3.1 mmol/L (3.5-5.1)
[2021-07-17] MEDS ORDERED: GLUCAGON 1MG KIT 1 MG ML IM PRN (06:00)
[2021-07-17] MEDS ORDERED: DEXTROSE 50%-WATER 50 ML DISP.SYRIN IV PRN (06:00)
[2021-07-17] MEDS ORDERED: POTASSIUM CHLORIDE 20MEQ/100ML 100 ML IV PRN (06:00)
[2021-07-17] MEDS ORDERED: POTASSIUM CHLORIDE 10% ELIXIR 20 MEQ/15 ML UDCUP PO PRN (06:00)
[2021-07-17] MEDS ORDERED: MAGNESIUM 2GM PREMIX 50ML 50 ML IV PRN (06:00)
[2021-07-17 06:16] LABS: MAGNESIUM 1.7 mg/dL (1.80-2.40); THYROID STIMULATING HORMONE 2.65 uIU/mL (0.36-3.74)
[2021-07-17 07:06] LABS: INR 1.1 (0.85-1.15); PARTIAL THROMBOPLASTIN TIME 25.9 SEC (26.3-35.5); PROTHROMBIN TIME 11.3 SEC (9.6-11.6)
[2021-07-17 08:00] VITALS: BP 168/60
[2021-07-17] MEDS: KCL 20 MEQ ERTAB PO PRN ×2 (08:06→08:07)
[2021-07-17] MEDS: LOSARTAN 100 MG TABLET PO SCH (08:07)
[2021-07-17] MEDS: ASPIRIN 81 MG EC TAB PO SCH (08:07)
[2021-07-17] MEDS: FUROSEMIDE 20 MG TABLET PO SCH (08:08)
[2021-07-17] MEDS: APIXABAN 5 MG TABLET PO SCH ×2 (08:08→20:54)
[2021-07-17] MEDS: FOLIC ACID 1 MG TABLET PO SCH (08:08)
[2021-07-17] MEDS: FERROUS SULFATE 325 MG TABLET.DR PO SCH (08:08)
[2021-07-17] MEDS ORDERED: ENOXAPARIN SODIUM 40 MG/0.4 ML SYRINGE SQ SCH (09:00)
[2021-07-17] MEDS ORDERED: HYDROCHLOROTHIAZIDE 25 MG TABLET PO SCH (09:00)
[2021-07-17 11:33] VITALS: BP 148/54
[2021-07-17] MEDS ORDERED: KCL 20 MEQ ERTAB PO SCH (14:00)
[2021-07-17 16:00] VITALS: BP 153/59
[2021-07-17 19:45] VITALS: BP 146/61
[2021-07-17] MEDS ORDERED: ATORVASTATIN 20 MG TABLET PO SCH (21:00)
[2021-07-17 23:48] VITALS: BP 147/66
[2021-07-18 04:05] VITALS: BP 167/66
[2021-07-18 04:23] LABS: POTASSIUM 3.8 mmol/L (3.5-5.1)
[2021-07-18] MEDS: KCL 20 MEQ ERTAB PO PRN ×2 (05:57→08:14)
[2021-07-18 07:00] VITALS: BP 138/67
[2021-07-18 07:41] LABS: BASOPHILS % (AUTO) 0.5 % (0.0-5.0); EOSINOPHILS % (AUTO) 2.8 % (0.0-8.0); HEMATOCRIT 31.4 % (36-48); LYMPHOCYTES % (AUTO) 37.6 % (21.0-51.0); MEAN CORPUSCULAR HEMOGLOBIN 28.1 pg (27.0-33.0); MEAN CORPUSCULAR HGB CONC 33.1 g/dL (32.0-36.0); MEAN CORPUSCULAR VOLUME 84.9 fL (79-99); MONOCYTES % (AUTO) 10.4 % (3.0-13.0); NEUTROPHILS % (AUTO) 48.4 % (40.0-77.0); PLATELET COUNT (AUTO) 223 K/uL (130-400); WHITE BLOOD COUNT (AUTO) 6.3 K/uL (4.8-10.8)
[2021-07-18 07:51] LABS: BILIRUBIN,TOTAL 0.7 mg/dL (0.2-1.0); POTASSIUM 3.8 mmol/L (3.5-5.1); TOTAL PROTEIN, SERUM 6.4 g/dL (6.0-8.3)
[2021-07-18] MEDS: APIXABAN 5 MG TABLET PO SCH (08:13)
[2021-07-18] MEDS: LOSARTAN 100 MG TABLET PO SCH (08:13)
[2021-07-18] MEDS: ASPIRIN 81 MG EC TAB PO SCH (08:13)
[2021-07-18] MEDS: FOLIC ACID 1 MG TABLET PO SCH (08:13)
[2021-07-18] MEDS: FERROUS SULFATE 325 MG TABLET.DR PO SCH (08:13)
[2021-07-18] MEDS: FUROSEMIDE 20 MG TABLET PO SCH (08:13)
[2021-07-18 11:00] VITALS: BP 144/64
[2021-07-18 16:00] VITALS: BP 137/53
== END 2021-07-18 19:45 | disposition home or self-care (01) ==
LOC: EDH 13:50 → EDHIP 19:12 → 4DH 23:38 → 2AH 07-17 17:37
PROVIDERS: ADMIT Internal Medicine Critical Care Medicine; ATTEND Internal Medicine Critical Care Medicine
DX: I11.0 Hypertensive heart disease with heart failure (principal); I50.23 Acute on chronic systolic (congestive) heart failure; R79.89 Other specified abnormal findings of blood chemistry; E87.1 Hypo-osmolality and hyponatremia; E87.6 Hypokalemia; E83.42 Hypomagnesemia; E78.5 Hyperlipidemia, unspecified; I48.0 Paroxysmal atrial fibrillation; E86.0 Dehydration; I45.9 Conduction disorder, unspecified; J06.9 Acute upper respiratory infection, unspecified; E78.00 Pure hypercholesterolemia, unspecified; Z79.899 Other long term (current) drug therapy; Z79.01 Long term (current) use of anticoagulants; Z79.82 Long term (current) use of aspirin; Z95.0 Presence of cardiac pacemaker; Z96.652 Presence of left artificial knee joint
CPT/HCPCS: 36415 ×3; 71045 ×2; 71275; 80048; 80053 ×2; 83735 ×2; 83880 ×2; 84100; 84443; 84484 ×3; 85025 ×3; 85378; 85610; 85730; 93005 ×2; 93306; 96361; 96365; 99285; G0378 ×49; J3475; J7050; Q9967

== ENCOUNTER → 2021-10-05 | Outpatient (CLI) | payer OTHER, MEDICARE ==
[~2021-10-05] MED LIST changes: +APIX5TAB PO; +FURO-152 PO; -HYDR25TA PO; +LOSA100T58 PO; -MECL-160 PO
== END | disposition home or self-care (01) ==
LOC: RAH 11:03
PROVIDERS: ATTEND Internal Medicine Cardiovascular Disease
DX: J44.9 Chronic obstructive pulmonary disease, unspecified (principal); I50.42 Chronic combined systolic (congestive) and diastolic (congestive) heart failure; I51.7 Cardiomegaly; M41.84 Other forms of scoliosis, thoracic region; M85.88 Other specified disorders of bone density and structure, other site
CPT/HCPCS: 71045

== ENCOUNTER 2022-02-13 12:19 | Emergency (ER) | payer OTHER, MEDICARE ==
[~2022-02-13] VITALS: Ht 175.3 cm; Wt 79.4 kg
[2022-02-13 13:25] LABS: APPEARANCE,URINE CLEAR (CLEAR); BILIRUBIN,URINE NEGATIVE (NEGATIVE); COLOR,URINE LIGHT-YELLOW (YELLOW); GLUCOSE, URINE (UA) 150 mg/dL (NEGATIVE); KETONES,URINE NEGATIVE (NEGATIVE); LEUKOCYTE ESTERASE ,URINE 500 Leu/uL (NEGATIVE); NITRATE,URINE NEGATIVE (NEGATIVE); OCCULT BLOOD,URINE NEGATIVE (NEGATIVE); PH,URINE 5.5 (5.0-8.0); PROTEIN,URINE NEGATIVE (NEGATIVE); UROBILINOGEN,URINE 0.2 mg/dL (0.2-1.0)
[2022-02-13] MEDS ORDERED: ONDANSETRON 4MG INJ IVP ONE (13:30)
[2022-02-13] MEDS ORDERED: KETOROLAC 15MG/ML VIAL (15MG/ML) IV ONE (13:30)
[2022-02-13 13:35] LABS: BACTERIA,URINE FEW /HPF (None Seen); MUCUS,URINE RARE LPF (None Seen); RBC,URINE 0-1 /HPF (0-1); SQUAMOUS EPITHELIAL CELL,UR RARE /HPF (0-2); WBC,URINE 51-100 /HPF (0-1)
[2022-02-13 13:47] LABS: BASOPHILS % (AUTO) 0.4 % (0.0-5.0); EOSINOPHILS % (AUTO) 1.2 % (0.0-8.0); HEMATOCRIT 35.7 % (36-48); LYMPHOCYTES % (AUTO) 36.9 % (21.0-51.0); MEAN CORPUSCULAR HGB CONC 32.2 g/dL (32.0-36.0); MEAN CORPUSCULAR VOLUME 86.9 fL (79-99); MONOCYTES % (AUTO) 8.7 % (3.0-13.0); NEUTROPHILS % (AUTO) 52.5 % (40.0-77.0); PLATELET COUNT (AUTO) 218 K/uL (130-400); RED BLOOD CELL COUNT(AUTO) 4.11 MIL/uL (4.00-5.50); RED CELL DISTRIBUTION WIDTH 13.9 % (11.0-15.5); WHITE BLOOD COUNT (AUTO) 7.8 K/uL (4.8-10.8)
[2022-02-13 13:53] LABS: CARBON DIOXIDE 36 mmol/L (21-32); CHLORIDE 96 mmol/L (101-111); CREATININE 1.9 mg/dL (0.5-1.5); GLOMERULAR FILTR. RATE CALC 27 mL/min (>60); GLUCOSE,RANDOM 107 mg/dL (70-105); POTASSIUM 4.3 mmol/L (3.5-5.1); SODIUM SERUM 136 mmol/L (136-145); UREA NITROGEN, BLOOD 46 mg/dL (7-18)
[2022-02-13 13:58] LABS: ALANINE AMINOTRANSFERASE 18 U/L (12-78); ALBUMIN 3.6 g/dL (3.5-5.0); ASPARTATE AMINOTRANSFERASE 25 U/L (10-37); CRP QUANTITATIVE < 2.00 mg/L (0.00-9.0); TOTAL PROTEIN, SERUM 7.1 g/dL (6.0-8.3)
[2022-02-13] MEDS ORDERED: CEFTRIAXONE 1G VIAL IVP ONE (14:30)
[2022-02-13] MEDS ORDERED: PHENAZOPYRIDINE HCL 200 MG TABLET PO ONE (14:30)
[2022-02-13] MEDS ORDERED: CEFU500T67 PO (16:05)
[2022-02-13] MEDS ORDERED: PHEN-847 PO (16:05)
[2022-02-13 16:19] VITALS: BP 142/56
[2022-02-16] MEDS ORDERED: IOHEXOL 350 MG/ML 100ML INFUS..BTL IV ONE (21:54)
== END 2022-02-13 16:24 | disposition home or self-care (01) ==
LOC: EDH 12:19
DX: N39.0 Urinary tract infection, site not specified (principal); E78.00 Pure hypercholesterolemia, unspecified; I10 Essential (primary) hypertension; Z98.890 Other specified postprocedural states; Z79.899 Other long term (current) drug therapy; Z86.73 Personal history of transient ischemic attack (TIA), and cerebral infarction without residual deficits
CPT/HCPCS: 36415; 71045; 74176; 80053; 81001; 84484; 85025; 86140; 87077; 87088; 87186; 96374; 96375; J0696; J1885; J2405

== ENCOUNTER → 2022-02-14 | Outpatient (CLI) | payer OTHER, MEDICARE ==
[~2022-02-14] MED LIST changes: +ACET-2079 PO; +CEFU500T67 PO; +DICL100G31 TP; +EMPA10TA PO; +PHEN-847 PO; +SACU1TAB7 PO; +SPIR25TA6 PO; +VALA100031 PO
== END | disposition home or self-care (01) ==
LOC: RAH 14:41
PROVIDERS: ATTEND Internal Medicine Cardiovascular Disease
DX: I50.41 Acute combined systolic (congestive) and diastolic (congestive) heart failure (principal)
CPT/HCPCS: 71250

== ENCOUNTER 2022-02-16 20:04 | Observation (INO) | payer OTHER, MEDICARE ==
[~2022-02-16] VITALS: Ht 175.3 cm; Wt 80.7 kg
[~2022-02-16 20:04] MED LIST changes: -ACET-2079 PO; -DICL100G31 TP; -EMPA10TA PO; -SACU1TAB7 PO; -SPIR25TA6 PO; -VALA100031 PO
[2022-02-16 21:58] LABS: BASOPHILS % (AUTO) 0.4 % (0.0-5.0); EOSINOPHILS % (AUTO) 0.3 % (0.0-8.0); LYMPHOCYTES % (AUTO) 17.4 % (21.0-51.0); MEAN CORPUSCULAR HEMOGLOBIN 28.3 pg (27.0-33.0); MEAN CORPUSCULAR HGB CONC 32.4 g/dL (32.0-36.0); MEAN CORPUSCULAR VOLUME 87.4 fL (79-99); MONOCYTES % (AUTO) 8.4 % (3.0-13.0); NEUTROPHILS % (AUTO) 73.2 % (40.0-77.0); PLATELET COUNT (AUTO) 188 K/uL (130-400); RED BLOOD CELL COUNT(AUTO) 3.89 MIL/uL (4.00-5.50); RED CELL DISTRIBUTION WIDTH 13.5 % (11.0-15.5); WHITE BLOOD COUNT (AUTO) 7.7 K/uL (4.8-10.8)
[2022-02-16] MEDS ORDERED: 0.9%NACL 1000ML 500 ML IV ONE (22:00)
[2022-02-16] MEDS ORDERED: ONDANSETRON 4MG INJ IVP ONE (22:00)
[2022-02-16 22:12] LABS: CREATININE 2.1 mg/dL (0.5-1.5); POTASSIUM 4.7 mmol/L (3.5-5.1)
[2022-02-16 22:16] LABS: ALBUMIN 3.3 g/dL (3.5-5.0); TOTAL PROTEIN, SERUM 6.7 g/dL (6.0-8.3)
[2022-02-16 22:36] LABS: APPEARANCE,URINE CLEAR (CLEAR); BILIRUBIN,URINE NEGATIVE (NEGATIVE); COLOR,URINE DARK-YELLOW (YELLOW); GLUCOSE, URINE (UA) 150 mg/dL (NEGATIVE); KETONES,URINE NEGATIVE (NEGATIVE); LEUKOCYTE ESTERASE ,URINE NEGATIVE Leu/uL (NEGATIVE); NITRATE,URINE 1+ (NEGATIVE); OCCULT BLOOD,URINE NEGATIVE (NEGATIVE); PH,URINE 6.5 (5.0-8.0); PROTEIN,URINE NEGATIVE (NEGATIVE); UROBILINOGEN,URINE 0.2 mg/dL (0.2-1.0)
[2022-02-16 22:43] LABS: BACTERIA,URINE RARE /HPF (None Seen); RBC,URINE 0-1 /HPF (0-1); SQUAMOUS EPITHELIAL CELL,UR RARE /HPF (0-2)
[2022-02-16] MEDS ORDERED: ASPIRIN 81MG CHEW TAB PO ONE (23:00)
[2022-02-16] MEDS ORDERED: CEFTRIAXONE 1G VIAL IVP ONE (23:30)
[2022-02-17] MEDS ORDERED: ACETAMINOPHEN 325 MG TAB PO PRN
[2022-02-17] MEDS ORDERED: ONDANSETRON 4MG INJ IVP PRN
[2022-02-17] MEDS ORDERED: HYDRALAZINE 20MG/ML VIAL IV PRN
[2022-02-17] MEDS: CEFTRIAXONE 2GM VIAL IVP SCH
[2022-02-17 00:40] LABS: CREATINE KINASE, TOTAL 42 U/L (21-232); MYOGLOBIN 120 ng/mL (10-92)
[2022-02-17] MEDS ORDERED: CEFTRIAXONE 1G VIAL IVP ONE (01:00)
[2022-02-17 01:24] VITALS: BP 140/62
[2022-02-17] MEDS ORDERED: SACU1TAB7 PO (01:32)
[2022-02-17] MEDS ORDERED: DICL100G31 TP (01:32)
[2022-02-17] MEDS ORDERED: EMPA10TA PO (01:32)
[2022-02-17] MEDS ORDERED: VALA100031 PO (01:32)
[2022-02-17] MEDS ORDERED: SPIR25TA6 PO (01:32)
[2022-02-17] MEDS ORDERED: ACET-2079 PO (01:32)
[2022-02-17 05:07] VITALS: BP 130/57
[2022-02-17] MEDS: INSULIN HUMULIN R 100 UNIT/ML 3ML SQ SCH ×4 (05:53→21:00)
[2022-02-17 06:44] LABS: HEMATOCRIT 32.5 % (36-48); MEAN CORPUSCULAR HEMOGLOBIN 28.1 pg (27.0-33.0); MEAN CORPUSCULAR VOLUME 87.8 fL (79-99); RED BLOOD CELL COUNT(AUTO) 3.7 MIL/uL (4.00-5.50); RED CELL DISTRIBUTION WIDTH 13.3 % (11.0-15.5); WHITE BLOOD COUNT (AUTO) 5.6 K/uL (4.8-10.8)
[2022-02-17 07:23] LABS: CREATININE 1.9 mg/dL (0.5-1.5); MAGNESIUM 2.2 mg/dL (1.80-2.40); PHOSPHORUS 4.2 mg/dL (2.5-4.9); POTASSIUM 4.2 mmol/L (3.5-5.1)
[2022-02-17 08:00] VITALS: BP 130/54
[2022-02-17] MEDS ORDERED: ENOXAPARIN SODIUM 30 MG/0.3 ML SQ SCH (09:00)
[2022-02-17] MEDS: FUROSEMIDE 20 MG TABLET PO SCH (09:29)
[2022-02-17] MEDS: FAMOTIDINE 20MG TAB PO SCH ×2 (09:29→20:35)
[2022-02-17] MEDS: VALACYCLOVIR HCL 500 MG TABLET PO SCH ×3 (09:29→20:34)
[2022-02-17] MEDS: ASPIRIN 81MG CHEW TAB PO SCH (09:29)
[2022-02-17] MEDS: APIXABAN 5 MG TABLET PO SCH ×2 (09:30→20:35)
[2022-02-17 11:00] VITALS: BP 136/52
[2022-02-17 16:00] VITALS: BP 140/55
[2022-02-17] MEDS ORDERED: MECLIZINE HCL 12.5 MG TABLET PO PRN (18:30)
[2022-02-17] MEDS ORDERED: PHARMACY COMMUNICATION MISC SCH (18:30)
[2022-02-17] MEDS ORDERED: ATORVASTATIN 20 MG TABLET PO SCH (21:00)
[2022-02-17 21:32] VITALS: BP 135/62
[2022-02-18 00:14] VITALS: BP 147/66
[2022-02-18] MEDS: CEFTRIAXONE 2GM VIAL IVP SCH (00:54)
[2022-02-18 04:41] VITALS: BP 148/58
[2022-02-18 04:45] LABS: BASOPHILS % (AUTO) 0.3 % (0.0-5.0); EOSINOPHILS % (AUTO) 2.2 % (0.0-8.0); HEMATOCRIT 33.2 % (36-48); LYMPHOCYTES % (AUTO) 36.7 % (21.0-51.0); MEAN CORPUSCULAR HEMOGLOBIN 28.3 pg (27.0-33.0); MEAN CORPUSCULAR HGB CONC 31.9 g/dL (32.0-36.0); MEAN CORPUSCULAR VOLUME 88.8 fL (79-99); MONOCYTES % (AUTO) 11.9 % (3.0-13.0); NEUTROPHILS % (AUTO) 48.6 % (40.0-77.0); PLATELET COUNT (AUTO) 170 K/uL (130-400); RED BLOOD CELL COUNT(AUTO) 3.74 MIL/uL (4.00-5.50); RED CELL DISTRIBUTION WIDTH 13.3 % (11.0-15.5); WHITE BLOOD COUNT (AUTO) 6.4 K/uL (4.8-10.8)
[2022-02-18 05:04] LABS: CREATININE 1.7 mg/dL (0.5-1.5); POTASSIUM 3.9 mmol/L (3.5-5.1)
[2022-02-18 05:17] LABS: B-TYPE NATRIURETIC PEPTIDE 395 pg/mL (0-100)
[2022-02-18] MEDS: INSULIN HUMULIN R 100 UNIT/ML 3ML SQ SCH (06:09)
[2022-02-18 08:00] VITALS: BP 152/52
[2022-02-18] MEDS ORDERED: FAMO20TA8 PO (08:49)
[2022-02-18] MEDS ORDERED: CIPR-279 PO (08:49)
[2022-02-18] MEDS ORDERED: MULTIVITAMIN TABLET PO SCH (09:00)
[2022-02-18] MEDS ORDERED: FERROUS SULFATE 325 MG TABLET.DR PO SCH (09:00)
[2022-02-18] MEDS: FAMOTIDINE 20MG TAB PO SCH (09:04)
[2022-02-18] MEDS: ASPIRIN 81MG CHEW TAB PO SCH (09:04)
[2022-02-18] MEDS: VALACYCLOVIR HCL 500 MG TABLET PO SCH (09:04)
[2022-02-18] MEDS: FUROSEMIDE 20 MG TABLET PO SCH (09:05)
[2022-02-18] MEDS: APIXABAN 5 MG TABLET PO SCH (09:05)
== END 2022-02-18 11:01 | disposition home or self-care (01) ==
LOC: EDH 20:04 → EDHIP 23:44 → 4CH 02-17 00:38
PROVIDERS: ADMIT Internal Medicine; ATTEND Internal Medicine
DX: N39.0 Urinary tract infection, site not specified (principal); D64.9 Anemia, unspecified; N17.9 Acute kidney failure, unspecified; I11.0 Hypertensive heart disease with heart failure; I50.9 Heart failure, unspecified; B02.9 Zoster without complications; E88.09 Other disorders of plasma-protein metabolism, not elsewhere classified; E78.5 Hyperlipidemia, unspecified; I24.8 Other forms of acute ischemic heart disease; E78.00 Pure hypercholesterolemia, unspecified; K44.9 Diaphragmatic hernia without obstruction or gangrene; K57.90 Diverticulosis of intestine, part unspecified, without perforation or abscess without bleeding; M41.9 Scoliosis, unspecified; M47.815 Spondylosis without myelopathy or radiculopathy, thoracolumbar region; Z86.73 Personal history of transient ischemic attack (TIA), and cerebral infarction without residual deficits; Z79.899 Other long term (current) drug therapy; Z98.890 Other specified postprocedural states; Z95.810 Presence of automatic (implantable) cardiac defibrillator
CPT/HCPCS: 96361 ×2; 99285; 84484 ×3; 80053; 83690; 85025 ×2; 83605 ×2; 81001; 36415 ×3; 71045; 74176; 93005; 96374; 96375; 82550 ×2; 83615; 83735; 84100; 83874 ×2; 80048 ×2; 83880 ×2; 85027; 82948 ×6; 84145; 96376; G0378 ×35; J7030; J0696 ×3; J2405

== ENCOUNTER → 2022-07-08 | Outpatient (CLI) | payer OTHER, MEDICARE ==
[~2022-07-08] MED LIST changes: +ACET-2079 PO; -CEFU500T67 PO; +CIPR-279 PO; +DICL100G31 TP; +EMPA10TA PO; +FAMO20TA8 PO; -LOSA100T58 PO; -LOSA50TA64 PO; -METO25 PO; -PHEN-847 PO; +SACU1TAB7 PO; +VALA100031 PO
[2022-07-08 16:43] LABS: CREATININE 1.8 mg/dL (0.5-1.5); POTASSIUM 4.2 mmol/L (3.5-5.1)
== END | disposition home or self-care (01) ==
LOC: LAB 11:52
PROVIDERS: ATTEND Internal Medicine Cardiovascular Disease
DX: I50.42 Chronic combined systolic (congestive) and diastolic (congestive) heart failure (principal)
CPT/HCPCS: 36415; 80048; 83880

== ENCOUNTER 2022-07-15 09:59 | Emergency (ER) | payer OTHER, MEDICARE ==
[~2022-07-15] VITALS: Ht 175.3 cm; Wt 76.7 kg
[2022-07-15 10:31] LABS: APPEARANCE,URINE CLEAR (CLEAR); BILIRUBIN,URINE NEGATIVE (NEGATIVE); COLOR,URINE LIGHT-YELLOW (YELLOW); GLUCOSE, URINE (UA) 200 mg/dL (NEGATIVE); KETONES,URINE NEGATIVE (NEGATIVE); LEUKOCYTE ESTERASE ,URINE 25 Leu/uL (NEGATIVE); NITRATE,URINE NEGATIVE (NEGATIVE); OCCULT BLOOD,URINE NEGATIVE (NEGATIVE); PROTEIN,URINE NEGATIVE (NEGATIVE); UROBILINOGEN,URINE 0.2 mg/dL (0.2-1.0)
[2022-07-15 10:36] LABS: HEMATOCRIT 35.8 % (36-48); MEAN CORPUSCULAR HEMOGLOBIN 28.4 pg (27.0-33.0); MEAN CORPUSCULAR HGB CONC 33.5 g/dL (32.0-36.0); MEAN CORPUSCULAR VOLUME 84.8 fL (79-99); RED BLOOD CELL COUNT(AUTO) 4.22 MIL/uL (4.00-5.50); RED CELL DISTRIBUTION WIDTH 13.1 % (11.0-15.5); WHITE BLOOD COUNT (AUTO) 7.8 K/uL (4.8-10.8)
[2022-07-15 10:38] LABS: MUCUS,URINE RARE LPF (None Seen); RBC,URINE 0-1 /HPF (0-1); SQUAMOUS EPITHELIAL CELL,UR RARE /HPF (0-2); TRANSITIONAL EPI CELLS,URINE RARE /HPF (None Seen)
[2022-07-15 11:03] LABS: ALBUMIN 3.4 g/dL (3.5-5.0); CREATININE 1.8 mg/dL (0.5-1.5); POTASSIUM 3.3 mmol/L (3.5-5.1); TOTAL PROTEIN, SERUM 6.7 g/dL (6.0-8.3)
[2022-07-15] MEDS ORDERED: 0.9%NACL 1000ML 1,000 ML IV ONE (11:30)
[2022-07-15 12:25] LABS: CREATININE 1.6 mg/dL (0.5-1.5); POTASSIUM 4.1 mmol/L (3.5-5.1)
[2022-07-15] MEDS ORDERED: 0.9% NACL 500ML IV.SOLN 500 ML IV ONE (13:00)
[2022-07-15 14:21] VITALS: BP 111/35
== END 2022-07-15 14:24 | disposition home or self-care (01) ==
LOC: EDH 09:59
DX: E86.0 Dehydration (principal); E87.1 Hypo-osmolality and hyponatremia; E87.8 Other disorders of electrolyte and fluid balance, not elsewhere classified; I10 Essential (primary) hypertension; E78.00 Pure hypercholesterolemia, unspecified; Z79.899 Other long term (current) drug therapy; Z79.84 Long term (current) use of oral hypoglycemic drugs; Z95.810 Presence of automatic (implantable) cardiac defibrillator; Z98.890 Other specified postprocedural states
CPT/HCPCS: 99284; 96360; 84484; 80053; 85027; 81001; 36415; 93005; 80048; J7040

== ENCOUNTER 2022-12-15 08:33 | Emergency (ER) | payer OTHER, MEDICARE ==
[~2022-12-15] VITALS: Ht 175.3 cm; Wt 74.8 kg
[~2022-12-15 08:33] MED LIST changes: -DICL100G31 TP; +DICL100G60 TP
[2022-12-15 08:35] VITALS: BP 122/80; PULSE 60; RESP 18
[2022-12-15] MEDS ORDERED: BACITRACIN 1 EACH PACKET TP ONE ×2 (09:14→09:30)
[2022-12-15] MEDS ORDERED: MUPI22OI2 TP (09:19)
== END 2022-12-15 09:25 | disposition home or self-care (01) ==
LOC: EDH 08:33
DX: S61.216A Laceration without foreign body of right little finger without damage to nail, initial encounter (principal); I10 Essential (primary) hypertension; E78.00 Pure hypercholesterolemia, unspecified; Z79.899 Other long term (current) drug therapy; Z98.890 Other specified postprocedural states; X58.XXXA Exposure to other specified factors, initial encounter; Y93.89 Activity, other specified; Y92.89 Other specified places as the place of occurrence of the external cause; Y99.8 Other external cause status
CPT/HCPCS: 99282

== ENCOUNTER → 2023-11-05 | Outpatient (CLI) | payer OTHER, MEDICARE ==
[~2023-11-05] MED LIST changes: +MUPI22OI2 TP
== END | disposition home or self-care (01) ==
LOC: RAH 11:33
PROVIDERS: ATTEND Internal Medicine Cardiovascular Disease
DX: I51.7 Cardiomegaly (principal); I50.22 Chronic systolic (congestive) heart failure; Z95.0 Presence of cardiac pacemaker
CPT/HCPCS: 71046

== ENCOUNTER 2024-03-19 06:51 | Observation (INO) | payer OTHER, MEDICARE ==
[~2024-03-19] VITALS: Ht 165.1 cm; Wt 76.4 kg
--- NOTE | 2024-03-19 07:16 | ERN ---
General Chief Complaint: Shortness of Breath Stated Complaint: SHORTNESS OF BREATH Time Seen by MD: 07:07 Source: patient History of Present Illness Initial Comments Patient is a 88 y/o female here for evaluation of sob. Patient states she has been having sob since 5am. She states she was told she has a week heart. She does not know if she has a hx of pulmonary disease such as asthma or copd. Allergies: Coded Allergies: No Known Drug Allergies (Verified Allergy, 02/21/13) Home Meds No Active Prescriptions or Reported Meds Past Medical History Past Medical History: A-Fib, High Cholesterol, Heart Disease, Hypertension, SD Past Surgical History: Pacer/AICD Surgical History Other: TUMOR REMOVAL IN BRAIN Family History Family History: Negative Social History Social History: Lives with family Results Laboratory and Microbiology Lab and Micro Result Laboratory Tests Test 03/19/24 07:35 03/19/24 07:50 White Blood Count 5.4 K/uL (4.8-10.8) Red Blood Count 3.42 MIL/uL (4.00-5.50) L Hemoglobin 9.8 g/dL (12.0-16.0) L Hematocrit 31.5 % (36-48) L Mean Corpuscular Volume 92.1 fL (79-99) Mean Corpuscular Hemoglobin 28.7 pg (27.0-33.0) Mean Corpuscular Hemoglobin Concent 31.1 g/dL (32.0-36.0) L Red Cell Distribution Width 14.0 % (11.0-15.5) Platelet Count 164 K/uL (130-400) Mean Platelet Volume 10.8 fL (7.5-10.5) H Immature Granulocyte % (Auto) 0.2 % (0-1) Neutrophils (%) (Auto) 51.3 % (40.0-77.0) Lymphocytes (%) (Auto) 38.5 % (21.0-51.0) Monocytes (%) (Auto) 7.0 % (3.0-13.0) Eosinophils (%) (Auto) 2.6 % (0.0-8.0) Basophils (%) (Auto) 0.4 % (0.0-5.0) Neutrophils # (Auto) 2.8 K/uL (1.8-7.7) Lymphocytes # (Auto) 2.1 K/uL (1.0-4.8) Monocytes # (Auto) 0.4 K/uL (0.1-1.0) Eosinophils # (Auto) 0.14 K/uL (0.00-0.70) Basophils # (Auto) 0.02 K/uL (0.00-0.20) Absolute Immature Granulocyte (auto 0.01 K/uL (0-1) Nucleated Red Blood Cells 0.0 % (0.0-0.19) Prothrombin Time 11.0 SEC (9.6-11.6) Prothromb Time International Ratio 1.02 (0.85-1.15) Activated Partial Thromboplast Time 26.1 SEC (26.3-35.5) L Sodium Level 145 mmol/L (136-145) Potassium Level 3.9 mmol/L (3.5-5.1) Chloride Level 109 mmol/L (101-111) Carbon Dioxide Level 28 mmol/L (21-32) Blood Urea Nitrogen 17 mg/dL (7-18) Creatinine 1.3 mg/dL (0.5-1.0) H Glomerular Filtration Rate Calc 39 mL/min (>90) Random Glucose 139 mg/dL (70-105) H Total Calcium 8.8 mg/dL (8.5-10.1) Magnesium Level 2.10 mg/dL (1.80-2.40) Total Creatine Kinase 49 U/L (21-232) # Troponin I High Sensitivity 33 ng/L (4-50) B-Type Natriuretic Peptide 872 pg/mL (0-100) H Influenza Type A Antigen NEGATIVE FOR TYPE A Influenza Type B Antigen NEGATIVE FOR TYPE B SARS-CoV-2, RNA, NAAT NEGATIVE SARS CoV-2 Labs Reviewed?: Yes EKG/XRAY/US/CT/MRI EKG Comment 03/19/2024 time 7:11 a.m. Ventricular rate [address] wave elevation or depression Ventricular paced MDM MDM: Differential diagnosis: Shortness of breath, CHF exacerbation, Rationale: Tests considered and ordered secondary to shared decision making include: labs, ECG and radiology Previous outside records reviewed: Old ER visits. Risk of complication and/or morbidity or mortality of patient management: None Medications-Per medication reconciliation Need for hospitalization: Patient does meet criteria for hospitalization. Need for emergency major/minor surgery: No There are no social concerns with this patient. Prescription drug management Prescriptions will include symptomatic care Patient's prior external medical records from other ER visits were reviewed by me as indicated. Prior testing and results from previous visits were reviewed. Prior tests were taken into account with medical decision making and resource utilization, independent historian/historians were used to obtain complete medical history. I independently interpreted the test that were performed, results were reviewed by me and considered findings on radiology if ordered. Medical management and examination interpretation discussions were had by me with other qualified healthcare professionals as indicated for the patient's care. Patient is a 88-year-old female coming in to be evaluated for shortness of breath. Patient does have a pacemaker in place. Laboratory workup elevated BNP patient will be admitted under the care of [facility] for ongoing management of acute on chronic CHF. ED Course Orders Procedure Category Date Status Time Cbc With Differential LAB 03/19/24 Complete 07:13 Prothrombin Time With LAB 03/19/24 Complete INR 07:13 B-Type Natriuretic LAB 03/19/24 Complete Peptide 07:13 Chest 1vw RAD 03/19/24 Resulted 07:13 12 Lead Ekg Tracing- EKG 03/19/24 Complete Technical 07:13 Magnesium LAB 03/19/24 Complete 07:13 Creatine Kinase, Total LAB 03/19/24 Complete 07:13 Troponin I High LAB 03/19/24 Complete Sensitivity 07:13 Urinalysis Profile LAB 03/19/24 Logged 07:13 Partial LAB 03/19/24 Complete Thromboplastin Time 07:13 Basic Metabolic Panel LAB 03/19/24 Complete 07:13 Covid Rna Naat LAB 03/19/24 Complete 07:13 Influenza Type A & B, LAB 03/19/24 Complete Rapid 07:13 Furosemide 20mg Vial PHA 03/19/24 Complete (Lasix 20mg Vial) 09:30 Current Medications Medications (Trade) Dose Ordered Sig/Trevor Route PRN Reason Start Time Stop Time Status Last Admin Dose Admin Furosemide (LASix 20MG VIAL) 20 mg ONCE ONCE IV 03/19/24 09:30 03/19/24 09:31 DC Vital Signs Date Time Temp Pulse Resp B/P (MAP) Pulse Ox O2 Delivery O2 Flow Rate FiO2 03/19/24 06:54 98.8 68 16 176/61 98 Room Air 0 Critical Care Note Comments Critical Care Procedure Note Authorized and Performed by: Total critical care time: Approximately 36 minutes Due to a high probability of clinically significant, life threatening deterioration, the patient required my highest level of preparedness to intervene emergently and I personally spent this critical care time directly and personally managing the patient. This critical care time included obtaining a history; examining the patient; pulse oximetry; ordering and review of studies; arranging urgent treatment with development of a management plan; evaluation of patient's response to treatment; frequent reassessment; and, discussions with other providers. This critical care time was performed to assess and manage the high probability of imminent, life-threatening deterioration that could result in multi-organ failure. It was exclusive of separately billable procedures and treating other patients and teaching time. Please see MDM section and the rest of the note for further information on patient assessment and treatment. DX & DISP Disposition: Inpatient Decision to Admit Time: 09:41 Departure Impression: Primary Impression: Acute exacerbation of CHF (congestive heart failure) Additional Impression: Shortness of breath Condition: Stable Scripts No Active Prescriptions or Reported Meds Referrals: MIKA MARCELO DO (PCP) MADAY YOUNG MD Mar 19, 2024 07:16
[2024-03-19 07:44] LABS: BASOPHILS # (AUTO) 0.02 K/uL (0.00-0.20); BASOPHILS % (AUTO) 0.4 % (0.0-5.0); EOSINOPHILS # (AUTO) 0.14 K/uL (0.00-0.70); EOSINOPHILS % (AUTO) 2.6 % (0.0-8.0); HEMATOCRIT 31.5 % (36-48); IMMATURE GRANULOCYTE ABSOLUTE 0.01 K/uL (0-1); LYMPHOCYTES # (AUTO) 2.1 K/uL (1.0-4.8); LYMPHOCYTES % (AUTO) 38.5 % (21.0-51.0); MEAN CORPUSCULAR HEMOGLOBIN 28.7 pg (27.0-33.0); MEAN CORPUSCULAR HGB CONC 31.1 g/dL (32.0-36.0); MEAN CORPUSCULAR VOLUME 92.1 fL (79-99); MONOCYTES # (AUTO) 0.4 K/uL (0.1-1.0); NEUTROPHILS # (AUTO) 2.8 K/uL (1.8-7.7); NEUTROPHILS % (AUTO) 51.3 % (40.0-77.0); PLATELET COUNT (AUTO) 164 K/uL (130-400); RED BLOOD CELL COUNT(AUTO) 3.42 MIL/uL (4.00-5.50); WHITE BLOOD COUNT (AUTO) 5.4 K/uL (4.8-10.8)
--- NOTE | 2024-03-19 07:46 | EKG ---
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
[2024-03-19 08:04] LABS: INR 1.02 (0.85-1.15)
[2024-03-19 08:05] LABS: PARTIAL THROMBOPLASTIN TIME 26.1 SEC (26.3-35.5)
[2024-03-19 08:09] LABS: CREATININE 1.3 mg/dL (0.5-1.0); POTASSIUM 3.9 mmol/L (3.5-5.1)
[2024-03-19 08:14] LABS: MAGNESIUM 2.1 mg/dL (1.80-2.40)
--- NOTE | 2024-03-19 08:32 | HMCIMG ---
CHEST 1VW HISTORY: Shortness of breath COMPARISON: February 18, 2024 FINDINGS: A frontal projection of the chest was obtained. Prominent interstitial markings are seen with possible superimposed infiltrates. The heart is borderline enlarged. All the lines and tubes are again seen in place. No evidence of aortic calcification is seen. IMPRESSION: 1. Prominent interstitial markings are seen with possible superimposed infiltrates.
[2024-03-19 08:45] LABS: SARS-CoV-2, RNA, NAAT NEGATIVE SARS CoV-2 (NEGATIVE)
[2024-03-19 09:02] LABS: INFLUENZA TYPE A NEGATIVE FOR TYPE A (NEGATIVE); INFLUENZA TYPE B NEGATIVE FOR TYPE B (NEGATIVE)
--- NOTE | 2024-03-19 09:03 | NUR ---
[facility] PACEM[facility] INTERIGATOR NOT TRANSMITTING INFORMATION AND REP IS BEING SENT TO [facility] PACEMAKER
[2024-03-19 09:06] LABS: B-TYPE NATRIURETIC PEPTIDE 872 pg/mL (0-100)
--- NOTE | 2024-03-19 09:15 | NUR ---
NATHAN FROM [facility] WILL BE COMING TO INTERROGATE PACEMAKER. HE IS COMING FROM [facility] AND WILL BE HERE APPROX 30 MIN TO AN HOUR.
[2024-03-19] MEDS ORDERED: acetaMINOPHEN 325 MG TAB PO PRN (10:00)
[2024-03-19] MEDS ORDERED: MAGNESIUM 2GM PREMIX 50ML 50 ML IV PRN (10:00)
[2024-03-19] MEDS ORDERED: acetaMINOPHEN 650 MG SUPPOSITORY RC PRN (10:00)
[2024-03-19] MEDS ORDERED: morPHINE 2 MG SYG IVP PRN (10:00)
[2024-03-19] MEDS: furoSEMIDE 20MG VIAL IV SCH (10:00)
[2024-03-19] MEDS ORDERED: PoTASSium chloRIDE 20MEQ/100ML 100 ML IV PRN (10:00)
[2024-03-19] MEDS ORDERED: PoTASSium chl 10% ELIXIR 20MEQ 20 MEQ/15 ML UDCUP PO PRN (10:00)
[2024-03-19] MEDS ORDERED: PoTASSium chloRIDE 20MEQ ER 20 MEQ ERTAB PO PRN (10:00)
[2024-03-19] MEDS: furoSEMIDE 20MG VIAL IV ONE (10:10)
[2024-03-19 10:25] LABS: APPEARANCE,URINE CLEAR (CLEAR); BILIRUBIN,URINE NEGATIVE (NEGATIVE); COLOR,URINE LIGHT-YELLOW (YELLOW); GLUCOSE, URINE (UA) 500 mg/dL (NEGATIVE); KETONES,URINE NEGATIVE (NEGATIVE); LEUKOCYTE ESTERASE ,URINE NEGATIVE Leu/uL (NEGATIVE); NITRATE,URINE NEGATIVE (NEGATIVE); OCCULT BLOOD,URINE NEGATIVE (NEGATIVE); PH,URINE 6.5 (5.0-8.0); PROTEIN,URINE NEGATIVE (NEGATIVE); UROBILINOGEN,URINE 0.2 mg/dL (0.2-1.0)
--- NOTE | 2024-03-19 10:26 | NUR ---
NATHAN [facility]JEDA [facility] IS AT THE BEDSIDE TO INTERROGATE PACE MAKER.
[2024-03-19 10:27] LABS: ADD UA MICROSCOPIC YES
[2024-03-19 10:31] LABS: MUCUS,URINE RARE LPF (None Seen); RBC,URINE 0-1 /HPF (0-1); SQUAMOUS EPITHELIAL CELL,UR RARE /HPF (0-2)
[2024-03-19 10:37] LABS: MAGNESIUM 2.1 mg/dL (1.80-2.40)
[2024-03-19] MEDS: IpraTROPium 0.5 MG/2.5 ML INH IH ONE (11:34)
[2024-03-19] MEDS: IpraTROPium 0.5 MG/2.5 ML INH IH SCH (11:37)
[2024-03-19 11:39] VITALS: PULSE 60; RESP 18
[2024-03-19 11:40] VITALS: PULSE 60; RESP 16; O2SAT 100
--- NOTE | 2024-03-19 11:53 | NUR ---
SUSIE DE LA ROSA FROM [facility] AT THE BEDSIDE.
[2024-03-19] MEDS ORDERED: HEParin 5,000 UNIT VIAL IV PRN (12:30)
[2024-03-19] MEDS ORDERED: HEParin 25,000 UNITS/250ML D5W 250 ML IV SCH (12:30)
--- NOTE | 2024-03-19 13:29 | CONS ---
[facility] CARDIOLOGY CONSULTATION REPORT Cardiology consultation note dictated for Dwayne Castro MD Date Patient Seen: Mar 19, 2024 Requesting Physician: Jamir Chicas MD Reason for Consultation: CHF exacerbation History of Present Illness: This is an 88-year-old female with a past medical history of HTN, DLD, palpitations, paroxysmal atrial fibrillation on chronic anticoagulation with Eliquis, NSTEMI 08/2019, normal coronaries via LHC in 08/2019, left retroperitoneal hematoma in 08/2019, Takotsubo syndrome in 02/2013 and again in 08/2019, conduction system disease with bradycardia s/p [facility] 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 Cardiology has been consulted for CHF exacerbation. The patient states walked to the bathroom and back to bed, but once she sat down, she began to experience shortness of breath and palpitations that lasted for approximately 10-15 minutes and subsided spontaneously. EKG demonstrated a V paced rhythm with a heart rate of 60bpm. Her device was interrogated this morning and did not reveal any episodes of high ventricular rate since 12/17/2022. BNP today of 872 with a previous level of 863 on 02/16/2024 from clinic records. Chest x-ray demonstrated bilateral infiltrates. She received Lasix 20mg IVx1 while in ED and will continue on same dose q 8hrs. She states she has been compliant with outpatient medications of spironolactone 25mg q Mon, Wed, and Fri and furosemide 40mg po daily. She currently denies chest pain, chest pressure, palpitations, shortness of breath, dizziness, orthopnea, fever, cough, nausea or vomiting. Past Medical History: As per HPI and summarized below Past Surgical History: Left knee replacement Right foot surgery Family History: Admits to a family history of heart disease. Social History: She lives with her daughter. Habits: She denies alcohol, tobacco or illicit drug use. Home Meds: Spironolactone 25mg q Mon, Wed, and Fri Furosemide 40mg daily Entresto 24-26mg BID Jardiance 10mg daily Eliquis 2.5mg BID Atorvastatin 20mg nightly Alendronate 70mg weekly Current Meds: Current Medications Medications Dose Ordered Sig/Trevor Start Time Stop Time Status Last Admin Ipratropium [place] 0.5 mg [id number] 03/19/24 12:00 04/18/24 11:59 03/19/24 11:37 Polyethylene Glycol 17 gm DAILY 03/20/24 09:00 04/19/24 08:59 Pantoprazole Sodium 40 mg DAILY 03/20/24 09:00 04/19/24 08:59 Aspirin 81 mg DAILY 03/20/24 09:00 04/19/24 08:59 Simvastatin 40 mg HS 03/19/24 21:00 04/18/24 20:59 Acetaminophen 650 mg Q6H PRN 03/19/24 10:00 04/18/24 09:59 Acetaminophen 650 mg Q6H PRN 03/19/24 10:00 04/18/24 09:59 Morphine Sulfate 2 mg Q4H PRN 03/19/24 10:00 03/26/24 09:59 Furosemide 20 mg Q8H 03/19/24 10:00 04/18/24 09:59 Potassium Chloride 100 ml @ 100 mls/hr AD PRN 03/19/24 10:00 04/18/24 09:59 Potassium Chloride 20 meq AD PRN 03/19/24 10:00 04/18/24 09:59 Potassium Chloride 20 meq AD PRN 03/19/24 10:00 04/18/24 09:59 Magnesium Sulfate 50 ml @ 0 mls/hr PROTOCOL PRN 03/19/24 10:00 04/18/24 09:59 Review of Systems: CONST: No fever, fatigue, or weight changes. EYES: No recent vision problems. ENT: No congestion, ear pain, or sore throat. C/V: No chest pain, palpitations, or edema. RESP: No cough, congestion, wheezing or shortness of breath. GI: No abdominal pain, nausea, vomiting, constipation, or diarrhea. : No incontinence or dysuria. SKIN: No rash. NEURO: No headache, focal numbness or weakness, dizziness, or seizures. PSYCH: No depression or anxiety. HEME: No abnormal bruising or bleeding. LYMPH: No swollen glands. Physical Examination: GENERAL: No acute distress. HEAD: Normal with no signs of head trauma. EYES: PERRLA, EOMI, conjunctiva and sclera normal. ENT: Hearing grossly intact, normal oropharynx. NECK: Supple without JVD. There is no tenderness, lymphadenopathy, or masses. No thyromegaly. Normal carotid upstrokes without bruits. LUNGS: Minimal rales bilaterally. No wheezes. HEART: Normal rate and rhythm. Normal S1 and S2 without murmurs, gallop or rub. VASC: Unable to palpate DP pulses bilaterally. RLE with trace edema. LLE with 1+ edema. ABD: Bowel sounds normal, soft, nontender, no masses, no organomegaly. No audible bruits. : Not examined LYMPH: No lymphadenopathy noted. EXT: No clubbing, cyanosis or edema. SKIN: No rashes or lesions noted. NEURO: Awake, alert, and oriented x3. No focal sensory or strength deficits noted. Vital Signs (last 8hr) Date Time Temp Pulse Resp B/P (MAP) Pulse Ox O2 Delivery O2 Flow Rate FiO2 03/19/24 12:00 60 20 151/59 98 Room Air* 0 21 03/19/24 11:40 60 16 N/A Room Air 21 03/19/24 11:39 60 18 03/19/24 06:54 98.8 68 16 176/61 98 Room Air 0 Laboratory: Hematology Labs: Test 03/19/24 07:35 Range/Units White Blood Count 5.4 4.8-10.8 K/uL Red Blood Count 3.42 L 4.00-5.50 MIL/uL Hemoglobin 9.8 L 12.0-16.0 g/dL Hematocrit 31.5 L 36-48 % Mean Corpuscular Volume 92.1 79-99 fL Mean Corpuscular Hemoglobin 28.7 27.0-33.0 pg Mean Corpuscular Hemoglobin Concent 31.1 L 32.0-36.0 g/dL Red Cell Distribution Width 14.0 11.0-15.5 % Platelet Count 164 130-400 K/uL Mean Platelet Volume 10.8 H 7.5-10.5 fL Immature Granulocyte % (Auto) 0.2 0-1 % Neutrophils (%) (Auto) 51.3 40.0-77.0 % Lymphocytes (%) (Auto) 38.5 21.0-51.0 % Monocytes (%) (Auto) 7.0 3.0-13.0 % Eosinophils (%) (Auto) 2.6 0.0-8.0 % Basophils (%) (Auto) 0.4 0.0-5.0 % Neutrophils # (Auto) 2.8 1.8-7.7 K/uL Lymphocytes # (Auto) 2.1 1.0-4.8 K/uL Monocytes # (Auto) 0.4 0.1-1.0 K/uL Eosinophils # (Auto) 0.14 0.00-0.70 K/uL Basophils # (Auto) 0.02 0.00-0.20 K/uL Absolute Immature Granulocyte (auto 0.01 0-1 K/uL Nucleated Red Blood Cells 0.0 0.0-0.19 % Chemistry Labs: Test 03/19/24 10:06 03/19/24 07:35 Range/Units Magnesium Level 2.10 1.80-2.40 mg/dL Total Creatine Kinase 40 21-232 U/L Troponin I High Sensitivity 39.7 4-50 ng/L Sodium Level 145 136-145 mmol/L Potassium Level 3.9 3.5-5.1 mmol/L Chloride Level 109 101-111 mmol/L Carbon Dioxide Level 28 21-32 mmol/L Blood Urea Nitrogen 17 7-18 mg/dL Creatinine 1.3 H 0.5-1.0 mg/dL Glomerular Filtration Rate Calc 39 >90 mL/min Random Glucose 139 H 70-105 mg/dL Total Calcium 8.8 8.5-10.1 mg/dL B-Type Natriuretic Peptide 872 H 0-100 pg/mL Coagulation Labs: Test 03/19/24 07:35 Range/Units Prothrombin Time 11.0 9.6-11.6 SEC Prothromb Time International Ratio 1.02 0.85-1.15 Activated Partial Thromboplast Time 26.1 L 26.3-35.5 SEC Diagnostics / Radiology: Impression and Plan: Acute on chronic systolic heart failure with improved EF Palpitations Paroxysmal atrial fibrillation on chronic anticoagulation with Eliquis Conduction system disease with bradycardia s/p 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 2D echo on 02/19/2024 demonstrated an EF of 50-55%, moderate LVH and moderate TR that has improved from 08/21/2019 with an EF of 35% HTN DLD NSTEMI 08/2019 Normal coronaries via LHC in 08/2019 Takotsubo syndrome in 02/2013 and again in 08/2019 CKD stage IIIb Palpitations Device interrogation did not reveal any episodes of high ventricular rate since 12/17/2022 -Place on telemetry monitoring Acute on chronic systolic heart failure with improved EF BNP today of 872 with a previous level of 863 on 02/16/2024 from clinic records Chest x-ray demonstrated bilateral infiltrates -Resume Spironolactone 25mg q Mon, Wed, and Fri, Entresto 24-26mg BID, Jardiance 10mg daily -Continue Lasix 20mg IV q 8hrs -BMP and Mg in AM Paroxysmal atrial fibrillation on chronic anticoagulation with Eliquis Non on any rate controlling medications -Resume Eliquis 5mg BID ATTESTATION BY PHYSICIAN I have seen and examined the patient, reviewed the above documentation, participated in medical decision making, made necessary modifications, and agree with the treatment plan as documented by my mid-level provider above. Uncertain significance of palpitations but the patient is here with dyspnea and chest x-ray shows vascular redistribution and cardiomegaly, and the patient is known to have 35% ejection fraction. BNP has been elevated before and is now over 800, I believe the patient would benefit from diuresis and observation of rhythm. Home when perceived to be at dry body weight, or consider right heart catheterization if this goal is nebulous. MD MAAME Alarcon [facility] Mar 19, 2024 13:29 DWAYNE CASTRO MD Mar 19, 2024 16:05
[2024-03-19] MEDS ORDERED: SPIRONOLACTONE 25 MG TAB PO SCH (13:30)
[2024-03-19] MEDS: EMPAGLIFLOZIN 10MG TABLET PO SCH (14:21)
[2024-03-19] MEDS: SACUBITRIL/VALSARTAN 1 EACH TABLET PO ONE (14:21)
--- NOTE | 2024-03-19 14:26 | HP ---
[facility] HISTORY & PHYSICAL Date Patient Seen: Mar 19, 2024 Time of Visit: 14:26 Supervising Physician: Ronnie Chicas MD Primary Care Physician: Dr Soha Buck MD Outpatient Specialists: Dr Castillo, Dr Orozco, Dr Adkins Inpatient Consults: PROBLEM LIST: Acute on chronic diastolic heart failure with last EF of 50-55% 02/2024 POA Paroxysmal atrial fibrillation on chronic anticoagulation with the Eliquis Conduction system disease with bradycardia status post [facility] PM (2019) Essential hypertension Dyslipidemia Hyperlipidemia CKD stage III Chronic anemia HPI: This is an 88-year-old female with a past medical history of diastolic heart failure, AFib s/p pacemaker placement on chronic anticoagulation with the Eliquis, CKD, chronic anemia, hypertension and hyperlipidemia who presented to the emergency department for increased progressive shortness of breath. Patient reports worsening shortness of breath at five in the morning. Patient denies cough, chills and fever. On arrival to the emergency department this morning she was afebrile with a temperature of 98.8 heart rate of 68 respiratory rate of 16 blood pressure 176/61 pulse oximetry 98% on room air. Basic labs were drawn and remarkable for H&H of 9.8/31.5 platelet count that is normal. White count and neutrophil count normal. Chemistry creatinine was 1.3 with a GFR of 39 random glucose of 139 mg/dL and a BNP of 872. Initial sensitive troponin was 33. EKG showed ventricular paced rhythm with a rate of 60 QTC 495. Per ED physician requested admission for acute on chronic CHF exacerbation and would like pacemaker interrogated. Patient assessed in room 20 in the emergency department awake alert and oriented x3 accompanied by her daughter at bedside. Patient is in no apparent distress denies any chest pain at this time. She does report dyspnea on minimal exertion. She is saturating well at room air, denies any cough or fevers. She does however have plus one pitting edema to bilateral lower extremities. She has been started on diuretics by emergency department physician. She was seen by Cardiology which resumed her Eliquis 5 mg p.o. b.i.d. and was placed back on aspirin and atorvastatin and Jardiance to optimize her heart failure medication. For now she may continue with furosemide 20 mg q.8 hours IV push. She is stable for medical-surgical with telemetry pack. Pacemaker was interrogated with no episodes of high ventricular rate since 2022 per Cardiology. PAST MEDICAL HX: HTN HLD CKD Chronic anemia Atrial fib s/p pacemaker placement on eliquis UTI History of takotsubo syndrome in 02/2013 Moderate LVH and moderate TR that has improved from 08/21/19 with EF of 35% PAST SURGICAL HX: Pacemaker placement 2018 SOCIAL HISTORY: No tobacco, ETOH, or illicit drug use Coded Allergies: No Known Drug Allergies (Verified Allergy, 02/21/13) REVIEW OF SYSTEMS: Const: [no fever, fatigue, or weight changes] Eyes:[ no recent vision problems] ENT: [No congestion, ear pain, or sore throat] C/V: [No chest pain, yes to palpitation and edema to lower extremities. Resp: No cough, congestion, wheezing yes to dyspnea on exertion GI: [No abdominal pain, nausea, vomiting, constipation, or diarrhea] : [No incontinence of or dyuria] M/S: [No joint or pain swelling] Skin: [No rash] Neuro: [no headache, focal numbness, or weakness, dizziness or seizures] Psych: [no depression or anxiety] Heme: [no abnormal bruising or bleeding] Lymph: [no swollen glands] PHYSICAL EXAM: GENERAL: alert, weak, awake oriented x 3 HEENT: EOMI, Sclera non icteric, moist mucosa NECK: Supple, no JVD, trachea midline LUNGS: Diminished breath sounds bilaterally. No wheezes HEART: Regular rate and rhythm. Normal S1 and S2, without murmurs ABD: Abdomen soft, nontender. Bowel sounds present EXT: No clubbing cyanosis, +1 pitting edema to BLE NEURO: Alert and oriented to person, follows commands Vital Signs (last 8hr) Date Time Temp Pulse Resp B/P (MAP) Pulse Ox O2 Delivery O2 Flow Rate FiO2 03/19/24 12:00 60 20 151/59 98 Room Air* 0 21 03/19/24 11:40 60 16 N/A Room Air 21 03/19/24 11:39 60 18 03/19/24 06:54 98.8 68 16 176/61 98 Room Air 0 LABS: Hematology Labs: Test 03/19/24 07:35 Range/Units White Blood Count 5.4 4.8-10.8 K/uL Red Blood Count 3.42 L 4.00-5.50 MIL/uL Hemoglobin 9.8 L 12.0-16.0 g/dL Hematocrit 31.5 L 36-48 % Mean Corpuscular Volume 92.1 79-99 fL Mean Corpuscular Hemoglobin 28.7 27.0-33.0 pg Mean Corpuscular Hemoglobin Concent 31.1 L 32.0-36.0 g/dL Red Cell Distribution Width 14.0 11.0-15.5 % Platelet Count 164 130-400 K/uL Mean Platelet Volume 10.8 H 7.5-10.5 fL Immature Granulocyte % (Auto) 0.2 0-1 % Neutrophils (%) (Auto) 51.3 40.0-77.0 % Lymphocytes (%) (Auto) 38.5 21.0-51.0 % Monocytes (%) (Auto) 7.0 3.0-13.0 % Eosinophils (%) (Auto) 2.6 0.0-8.0 % Basophils (%) (Auto) 0.4 0.0-5.0 % Neutrophils # (Auto) 2.8 1.8-7.7 K/uL Lymphocytes # (Auto) 2.1 1.0-4.8 K/uL Monocytes # (Auto) 0.4 0.1-1.0 K/uL Eosinophils # (Auto) 0.14 0.00-0.70 K/uL Basophils # (Auto) 0.02 0.00-0.20 K/uL Absolute Immature Granulocyte (auto 0.01 0-1 K/uL Nucleated Red Blood Cells 0.0 0.0-0.19 % Chemistry Labs: Test 03/19/24 10:06 03/19/24 07:35 Range/Units Magnesium Level 2.10 1.80-2.40 mg/dL Total Creatine Kinase 40 21-232 U/L Troponin I High Sensitivity 39.7 4-50 ng/L Sodium Level 145 136-145 mmol/L Potassium Level 3.9 3.5-5.1 mmol/L Chloride Level 109 101-111 mmol/L Carbon Dioxide Level 28 21-32 mmol/L Blood Urea Nitrogen 17 7-18 mg/dL Creatinine 1.3 H 0.5-1.0 mg/dL Glomerular Filtration Rate Calc 39 >90 mL/min Random Glucose 139 H 70-105 mg/dL Total Calcium 8.8 8.5-10.1 mg/dL B-Type Natriuretic Peptide 872 H 0-100 pg/mL Coagulation Labs: Test 03/19/24 07:35 Range/Units Prothrombin Time 11.0 9.6-11.6 SEC Prothromb Time International Ratio 1.02 0.85-1.15 Activated Partial Thromboplast Time 26.1 L 26.3-35.5 SEC DIAGNOSTICS / RADIOLOGY RESULTS: Signed PATIENT: MARIPOSA DEL REAL MR#: [id number] : 1935 SEX: F AGE: 88 LOCATION: [facility] ORDER 3 STATUS: REG ER REPORT#: [id number] SERVICE 2 REASON: sob ORDERING PHYSICIAN: MADAY YOUNG MD PROCEDURE: CXR1VW - CHEST 1VW CHEST 1VW HISTORY: Shortness of breath COMPARISON: February 18, 2024 FINDINGS: A frontal projection of the chest was obtained. Prominent interstitial markings are seen with possible superimposed infiltrates. The heart is borderline enlarged. All the lines and tubes are again seen in place. No evidence of aortic calcification is seen. IMPRESSION: 1. Prominent interstitial markings are seen with possible superimposed infiltrates. DICTATED BY: ROSITA SALMERON MD DATE: 03/19/24825 ELECTRONICALLY SIGNED BY: ROSITA SALMERON MD DATE: 03/19/24831 PLAN admit under OBS to [facility] with Tele Monitor respiratory status closely Maintain O2 sats above 92% Continuous telemetry monitoring CBC, cardiac troponin, electrolytes, BUN and creatinine labs in a.m. Chest x-ray in the morning Strict I&O Hydralazine p.r.n. for hypertension Diurese with Lasix 2D echo Fluid restriction 1.5-2 L Beta natalia hold of on SENTHIL-inhibitor due to wm SGLT2 inhibitors Aspirin Statin Sodium restriction Daily weight cardiology consult for interrogation of PM follow cardiology recs if improved in am may DC home with daughter resume her AC eliquis per cardiology recs NEURO: Minimize central acting medications as possible. Maintain fall precautions, adequate lighting during the day PULMONARY: Supplemental 02 as needed. Maintain aspiration precautions at all times CARDIOVASCULAR: Follow hemodynamics. Vital signs per facility protocol GI & NUTRITION: Continue with nutritional support. Continue stool softeners and laxatives as needed. KIDNEYS & ELECTROLYTES: Strict monitoring of intake, output and overall fluid balance. Avoid nephrotoxic medications to the extent possible. Medications to be dosed according to renal function. Monitor electrolytes and replace as needed ENDOCRINE: Maintain blood glucose between 100-180 at all times. Hypoglycemia protocol in place INFECTIOUS DISEASE: Trend temperature, WBC and procalcitonin level Follow cultures, deescalate antibiotics as soon as possible. Panculture if new onset fever ONCOLOGY/HEMATOLOGY/COAGULATION: Monitor for s/s of bleeding Monitor hemoglobin, coagulation studies as needed SKIN: Pressure ulcer prevention per facility protocol Specialty mattress ORTHO/REHAB: Continue PT/OT Prophylaxis: Continue GI and DVT prophylaxis Code Status: Full Resuscitation Disposition: TBD Other: Total patient care time exceeds 35 minutes excluding all procedures. NEREYDA STEPHEN [facility] Mar 19, 2024 14:26
--- NOTE | 2024-03-19 16:11 | NUR ---
DR CASTRO AT THE BEDSIDE
[2024-03-19] MEDS ORDERED: APIX2.5T PO (17:55)
[2024-03-19] MEDS ORDERED: SACU1TAB PO (17:56)
[2024-03-19] MEDS ORDERED: ATOR20TA65 PO (17:57)
[2024-03-19] MEDS ORDERED: EMPA10TA PO (17:58)
[2024-03-19] MEDS ORDERED: ALEN70TA80 PO (17:58)
[2024-03-19] MEDS ORDERED: GABA-529 PO (18:00)
[2024-03-19] MEDS ORDERED: FURO20TA4 PO ×2 (18:03)
[2024-03-19] MEDS ORDERED: SPIR25TA6 PO (18:05)
[2024-03-19] MEDS ORDERED: hydrALAZine 20MG/ML VIAL IV PRN (18:30)
[2024-03-19] MEDS ORDERED: GABApentin 100 MG CAPSULE PO PRN (18:30)
[2024-03-19 19:03] VITALS: PULSE 60; RESP 18; O2SAT 100
--- NOTE | 2024-03-19 19:50 | NUR ---
report given to curt holden
[2024-03-19] MEDS: atorVAStatin 20 MG TABLET PO SCH (20:08)
[2024-03-19] MEDS: APIXaban 5 MG TABLET PO SCH (20:08)
[2024-03-19 20:15] VITALS: BP 159/57; PULSE 60; RESP 19; TEMP 98.4
--- NOTE | 2024-03-19 20:15 | NUR ---
admit note admit to room 429 via stretcher from er. patient awake, alert, ox3, no sob, no c/o pain at this time, patients daughter at bedside, teach plan of care and expected outcome, both verbalize understanding via teach back
[2024-03-19] MEDS ORDERED: simVASTatin 20 MG TABLET PO SCH (21:00)
[2024-03-19 23:53] VITALS: BP 169/63; PULSE 56; RESP 19; TEMP 97.7
[2024-03-20] VITALS (14 sets, daily range): BP systolic 122–161; BP diastolic 49–68; PULSE 60–84; RESP 18–19; TEMP 97.8–99.2; O2SAT 96–100
[2024-03-20 04:14] LABS: BASOPHILS # (AUTO) 0.03 K/uL (0.00-0.20); BASOPHILS % (AUTO) 0.5 % (0.0-5.0); EOSINOPHILS # (AUTO) 0.16 K/uL (0.00-0.70); EOSINOPHILS % (AUTO) 2.6 % (0.0-8.0); HEMATOCRIT 30.1 % (36-48); IMMATURE GRANULOCYTE ABSOLUTE 0.01 K/uL (0-1); LYMPHOCYTES # (AUTO) 2.6 K/uL (1.0-4.8); LYMPHOCYTES % (AUTO) 41.9 % (21.0-51.0); MEAN CORPUSCULAR HEMOGLOBIN 28.4 pg (27.0-33.0); MEAN CORPUSCULAR HGB CONC 31.6 g/dL (32.0-36.0); MEAN CORPUSCULAR VOLUME 89.9 fL (79-99); MONOCYTES # (AUTO) 0.6 K/uL (0.1-1.0); MONOCYTES % (AUTO) 9.6 % (3.0-13.0); NEUTROPHILS # (AUTO) 2.8 K/uL (1.8-7.7); NEUTROPHILS % (AUTO) 45.2 % (40.0-77.0); PLATELET COUNT (AUTO) 161 K/uL (130-400); RED BLOOD CELL COUNT(AUTO) 3.35 MIL/uL (4.00-5.50); RED CELL DISTRIBUTION WIDTH 13.6 % (11.0-15.5); WHITE BLOOD COUNT (AUTO) 6.1 K/uL (4.8-10.8)
[2024-03-20 05:10] LABS: CREATININE 1.4 mg/dL (0.5-1.0); MAGNESIUM 1.9 mg/dL (1.80-2.40); PHOSPHORUS 3.7 mg/dL (2.5-4.9); POTASSIUM 4.1 mmol/L (3.5-5.1); THYROID STIMULATING HORMONE 2.61 uIU/mL (0.36-3.74)
[2024-03-20 05:30] LABS: B-TYPE NATRIURETIC PEPTIDE 769 pg/mL (0-100)
[2024-03-20] MEDS: ASPIRIN 81MG CHEW TAB PO SCH (09:00)
[2024-03-20] MEDS: polyETHYLene GLYCol 3350 17 GM POWD.PACK PO SCH (09:00)
[2024-03-20] MEDS: PANTOPrazole 40 MG TAB DR PO SCH (09:17)
--- NOTE | 2024-03-20 09:35 | HMCIMG ---
FRONTAL CHEST RADIOGRAPH INDICATION: hypoxic resp failure COMPARISON: 03/19/2024 FINDINGS/IMPRESSION: quality assurance monitor final leads overlie the field of view. Left sided single chamber pacer and continuous lead remain in customary position. Stable mild cardiac enlargement without pulmonary vascular congestion. No evidence for pleural effusion, pneumonia, or pneumothorax.
--- NOTE | 2024-03-20 14:16 | PN ---
[facility] CARDIOLOGY PROGRESS NOTE Date Patient Seen: Mar 20, 2024 Time of Visit: 14:12 Interval History: The patient was admitted due to sudden onset of palpitations and shortness of breadth, beginning at 5:00 a.m. yesterday. She states it lasted approximately 10-15 minutes. She denies any chest pain. She was admitted with a diagnosis of acute on chronic systolic heart failure. She has a single-chamber pacemaker and a history of atrial fibrillation, most likely permanent. Device interrogation done in the ER is not available. I spoke with with the device company rep who did the interrogation who states that there were no new high ventricular rates however there had been high rates in the past. Of note, she is pacing 97% in the ventricle. The patient had an ejection fraction of 35% by echo on 08/21/2019 however on a recent echo on 02/19/2024 her ejection fraction was 50-55%. There was also moderate LVH and moderate TR. Diastolic function was not mentioned and the tissue Doppler values reported were internally inconsistent. She came in with a BNP of 872. This was also elevated on 02/16/24 at 863, most likely related to chronic diastolic heart failure. The chest x-ray report on admission was not helpful however by my review showed minimally increased interstitial markings, possibly overestimated by the rotated projection. The patient currently feels well. They transient symptoms that she had previously have not returned. Physical Examination: LUNGS: Clear HEART: Regular rate and rhythm with no murmurs EXT: No edema Laboratory: [ ] Hematology Labs: Test 03/20/24 03:52 Range/Units White Blood Count 6.1 4.8-10.8 K/uL Red Blood Count 3.35 L 4.00-5.50 MIL/uL Hemoglobin 9.5 L 12.0-16.0 g/dL Hematocrit 30.1 L 36-48 % Mean Corpuscular Volume 89.9 79-99 fL Mean Corpuscular Hemoglobin 28.4 27.0-33.0 pg Mean Corpuscular Hemoglobin Concent 31.6 L 32.0-36.0 g/dL Red Cell Distribution Width 13.6 11.0-15.5 % Platelet Count 161 130-400 K/uL Mean Platelet Volume 10.6 H 7.5-10.5 fL Immature Granulocyte % (Auto) 0.2 0-1 % Neutrophils (%) (Auto) 45.2 40.0-77.0 % Lymphocytes (%) (Auto) 41.9 21.0-51.0 % Monocytes (%) (Auto) 9.6 3.0-13.0 % Eosinophils (%) (Auto) 2.6 0.0-8.0 % Basophils (%) (Auto) 0.5 0.0-5.0 % Neutrophils # (Auto) 2.8 1.8-7.7 K/uL Lymphocytes # (Auto) 2.6 1.0-4.8 K/uL Monocytes # (Auto) 0.6 0.1-1.0 K/uL Eosinophils # (Auto) 0.16 0.00-0.70 K/uL Basophils # (Auto) 0.03 0.00-0.20 K/uL Absolute Immature Granulocyte (auto 0.01 0-1 K/uL Nucleated Red Blood Cells 0.0 0.0-0.19 % Chemistry Labs: Test 03/20/24 03:52 03/19/24 23:04 Range/Units Sodium Level 143 136-145 mmol/L Potassium Level 4.1 3.5-5.1 mmol/L Chloride Level 105 101-111 mmol/L Carbon Dioxide Level 33 H 21-32 mmol/L Blood Urea Nitrogen 21 H 7-18 mg/dL Creatinine 1.4 H 0.5-1.0 mg/dL Glomerular Filtration Rate Calc 36 >90 mL/min Random Glucose 93 70-105 mg/dL Total Calcium 8.9 8.5-10.1 mg/dL Phosphorus Level 3.7 2.5-4.9 mg/dL Magnesium Level 1.90 1.80-2.40 mg/dL B-Type Natriuretic Peptide 769 H 0-100 pg/mL Thyroid Stimulating Hormone (TSH) 2.61 0.36-3.74 uIU/mL Total Creatine Kinase 41 21-232 U/L Troponin I High Sensitivity 41.9 4-50 ng/L Coagulation Labs: Test 03/19/24 07:35 Range/Units Prothrombin Time 11.0 9.6-11.6 SEC Prothromb Time International Ratio 1.02 0.85-1.15 Activated Partial Thromboplast Time 26.1 L 26.3-35.5 SEC Impression and Plan: 1. Palpitations with associated shortness of breath of unclear etiology 2. Chronic diastolic heart failure 3. Permanent atrial fibrillation 4. Symptomatic bradycardia status post previous permanent pacemaker implantation Plan: 1. I believe the most likely etiology of this patient's symptoms was a transient increase in her heart rate. This would not have been picked up by the pacemaker given the nominal high ventricular rate detection of 170 beats per minute. 2. We will reinterrogate the patient's device and reprogrammed the high ventricular rate detection to 140 beats per minute 3. The patient is on chronic anticoagulation so pulmonary embolism is unlikely 4. Once the devices reprogrammed and then the patient can be discharged 5. Follow up with Dr. Castillo in 2-4 weeks. MERLIN AYOUB MD Mar 20, 2024 14:16
--- NOTE | 2024-03-20 16:07 | PN ---
[facility] PROGRESS NOTE Date Patient Seen: Mar 20, 2024 Time of Visit: 1201 Supervising Physician: Dr. Chicas Primary Care Physician: Dr Soha Buck MD Outpatient Specialists: Dr Castillo, Dr Orozco, Dr Adkins Inpatient Consults: PROBLEM LIST: Acute on chronic diastolic heart failure with last EF of 50-55% 02/2024 POA Paroxysmal atrial fibrillation on chronic anticoagulation with the Eliquis Conduction system disease with bradycardia status post [facility] PM (2019) Essential hypertension Dyslipidemia Hyperlipidemia CKD stage III Chronic anemia INTERVAL HISTORY: 03/20 patient was seen and examined by bedside with family present. Patient is awake alert able to answer simple questions appropriately. Patient denies any chest pain or shortness of breadth. Patient also denies any nausea vomiting or abdominal pain. As per Cardiology believes most likely etiology of the patient's symptoms was a transient increase in heart rate this would have been picked up by the pacemaker given the normal high ventricular rate detection of 170 beats per minute we will reinterrogate the patient's device and reprogrammed high ventricular rate detection to 140 beats per minute once device has been reprogrammed patient is cleared for discharge and needs to follow up in 2-4 weeks. Appreciate cardiology's input we will follow recommendations. REVIEW OF SYSTEMS: Const: [no fever, fatigue, or weight changes] Eyes:[ no recent vision problems] ENT: [No congestion, ear pain, or sore throat] C/V: [No chest pain, yes to palpitation and edema to lower extremities. Resp: No cough, congestion, wheezing yes to dyspnea on exertion GI: [No abdominal pain, nausea, vomiting, constipation, or diarrhea] : [No incontinence of or dyuria] M/S: [No joint or pain swelling] Skin: [No rash] Neuro: [no headache, focal numbness, or weakness, dizziness or seizures] Psych: [no depression or anxiety] Heme: [no abnormal bruising or bleeding] Lymph: [no swollen glands] PHYSICAL EXAM: GENERAL: alert, weak, awake oriented x 3 HEENT: EOMI, Sclera non icteric, moist mucosa NECK: Supple, no JVD, trachea midline LUNGS: Diminished breath sounds bilaterally. No wheezes HEART: Regular rate and rhythm. Normal S1 and S2, without murmurs ABD: Abdomen soft, nontender. Bowel sounds present EXT: No clubbing cyanosis, +1 pitting edema to BLE NEURO: Alert and oriented to person, follows commands Vital Signs (last 8hr) Date Time Temp Pulse Resp B/P (MAP) Pulse Ox O2 Delivery O2 Flow Rate FiO2 03/20/24 12:00 97.9 60 19 144/49 97 Room Air 03/20/24 11:24 60 18 LABS: Hematology Labs: Test 03/20/24 03:52 Range/Units White Blood Count 6.1 4.8-10.8 K/uL Red Blood Count 3.35 L 4.00-5.50 MIL/uL Hemoglobin 9.5 L 12.0-16.0 g/dL Hematocrit 30.1 L 36-48 % Mean Corpuscular Volume 89.9 79-99 fL Mean Corpuscular Hemoglobin 28.4 27.0-33.0 pg Mean Corpuscular Hemoglobin Concent 31.6 L 32.0-36.0 g/dL Red Cell Distribution Width 13.6 11.0-15.5 % Platelet Count 161 130-400 K/uL Mean Platelet Volume 10.6 H 7.5-10.5 fL Immature Granulocyte % (Auto) 0.2 0-1 % Neutrophils (%) (Auto) 45.2 40.0-77.0 % Lymphocytes (%) (Auto) 41.9 21.0-51.0 % Monocytes (%) (Auto) 9.6 3.0-13.0 % Eosinophils (%) (Auto) 2.6 0.0-8.0 % Basophils (%) (Auto) 0.5 0.0-5.0 % Neutrophils # (Auto) 2.8 1.8-7.7 K/uL Lymphocytes # (Auto) 2.6 1.0-4.8 K/uL Monocytes # (Auto) 0.6 0.1-1.0 K/uL Eosinophils # (Auto) 0.16 0.00-0.70 K/uL Basophils # (Auto) 0.03 0.00-0.20 K/uL Absolute Immature Granulocyte (auto 0.01 0-1 K/uL Nucleated Red Blood Cells 0.0 0.0-0.19 % Chemistry Labs: Test 03/20/24 03:52 03/19/24 23:04 Range/Units Sodium Level 143 136-145 mmol/L Potassium Level 4.1 3.5-5.1 mmol/L Chloride Level 105 101-111 mmol/L Carbon Dioxide Level 33 H 21-32 mmol/L Blood Urea Nitrogen 21 H 7-18 mg/dL Creatinine 1.4 H 0.5-1.0 mg/dL Glomerular Filtration Rate Calc 36 >90 mL/min Random Glucose 93 70-105 mg/dL Total Calcium 8.9 8.5-10.1 mg/dL Phosphorus Level 3.7 2.5-4.9 mg/dL Magnesium Level 1.90 1.80-2.40 mg/dL B-Type Natriuretic Peptide 769 H 0-100 pg/mL Thyroid Stimulating Hormone (TSH) 2.61 0.36-3.74 uIU/mL Total Creatine Kinase 41 21-232 U/L Troponin I High Sensitivity 41.9 4-50 ng/L Coagulation Labs: Test 03/19/24 07:35 Range/Units Prothrombin Time 11.0 9.6-11.6 SEC Prothromb Time International Ratio 1.02 0.85-1.15 Activated Partial Thromboplast Time 26.1 L 26.3-35.5 SEC DIAGNOSTICS / RADIOLOGY RESULTS: na PLAN Monitor respiratory status closely Maintain O2 sats above 92% Continuous telemetry monitoring Strict I&O Hydralazine p.r.n. for hypertension Diurese with Lasix Fluid restriction 1.5-2 L Beta natalia hold of on SENTHIL-inhibitor due to wm SGLT2 inhibitors Aspirin Statin Sodium restriction Daily weight cardiology consult for interrogation of PM follow cardiology recs if improved in am may DC home with daughter resume her AC eliquis per cardiology recs NEURO: Minimize central acting medications as possible. Maintain fall precautions, adequate lighting during the day PULMONARY: Supplemental 02 as needed. Maintain aspiration precautions at all times CARDIOVASCULAR: Follow hemodynamics. Vital signs per facility protocol GI & NUTRITION: Continue with nutritional support. Continue stool softeners and laxatives as needed. KIDNEYS & ELECTROLYTES: Strict monitoring of intake, output and overall fluid balance. Avoid nephrotoxic medications to the extent possible. Medications to be dosed according to renal function. Monitor electrolytes and replace as needed ENDOCRINE: Maintain blood glucose between 100-180 at all times. Hypoglycemia protocol in place INFECTIOUS DISEASE: Trend temperature, WBC and procalcitonin level Follow cultures, deescalate antibiotics as soon as possible. Panculture if new onset fever ONCOLOGY/HEMATOLOGY/COAGULATION: Monitor for s/s of bleeding Monitor hemoglobin, coagulation studies as needed SKIN: Pressure ulcer prevention per facility protocol Specialty mattress ORTHO/REHAB: Continue PT/OT Prophylaxis: Continue GI and DVT prophylaxis Code Status: Full Resuscitation Disposition: TBD Other: Case discussed with supervising physician plan of care agreed upon LESLEY LAGUERRE Mar 20, 2024 16:07
[2024-03-21] VITALS (7 sets, daily range): BP systolic 141–148; BP diastolic 53–67; PULSE 60; RESP 16–19; TEMP 97.7–98.4; O2SAT 96–97
--- NOTE | 2024-03-21 14:08 | NUR ---
DCP: HOME WITH FAMILY Pt lives with daughter Marcelina De Santiago [id number] . Pt has a provider and respite hours 40hrs a week. Pt requires standby assistance with her ADLS, and ambulation. Pt has a walker with seat and elevated toilet seat with grab bars in her home. PCP is Aris Ritchie and uses [facility] for Rx. Daughter denied need for snf and states she will take pt home at me. Addendum: 03/21/24 at 1412 by HENRIQUE BOWMAN Amended: Links added.
--- NOTE | 2024-03-21 14:12 | NUR ---
D/C INSTRUCTIONS. D/C INSTRUCTIONS GIVEN TO PT/CG ACKNOWLEDGED; IV REMOVED
--- NOTE | 2024-03-21 14:12 | DS ---
[facility] DISCHARGE SUMMARY Date Patient Seen: Mar 21, 2024 Time of Visit: 1156 Supervising Physician: Dr. Chicas Primary Care Physician: Dr Soha Buck MD Outpatient Specialists: Dr Castillo, Dr Orozco, Dr Adkins Inpatient Consults: PROBLEM LIST: Acute on chronic diastolic heart failure exacerbation with last EF of 50-55% 02/2024 POA, resolved Paroxysmal atrial fibrillation on chronic anticoagulation with the Eliquis, stable Conduction system disease with bradycardia status post [facility] PM (2018), had interrogated and reprogrammed to high ventricular rate detection to 140 beats per minute Essential hypertension Dyslipidemia Hyperlipidemia CKD stage III Chronic anemia HOSPITAL COURSE: HPI (per admitting provider)This is an 88-year-old female with a past medical history of diastolic heart failure, AFib s/p pacemaker placement on chronic anticoagulation with the Eliquis, CKD, chronic anemia, hypertension and hyperlip idemia who presented to the emergency department for increased progressive shortness of breath. Patient reports worsening shortness of breath at five in the morning. Patient denies cough, chills and fever. On arrival to the emergency department this morning she was afebrile with a temperature of 98.8 heart rate of 68 respiratory rate of 16 blood pressure 176/61 pulse oximetry 98% on room air. Basic labs were drawn and remarkable for H&H of 9.8/31.5 platelet count that is normal. White count and neutrophil count normal. Chemistry creatinine was 1.3 with a GFR of 39 random glucose of 139 mg/dL and a BNP of 872. Initial sensitive troponin was 33. EKG showed ventricular paced rhythm with a rate of 60 QTC 495. Patient was seen and examined by bedside with daughter present. Patient is awake alert able to answer simple questions appropriately. At time of visit patient denies any chest pain or shortness of breadth. States feeling much better and is ready to go home. Patient denies nausea vomiting or abdominal pain. Is tolerating p.o. diet. He is having bowel movements. Patient had pacemaker interrogated, and reprogrammed to high ventricular rate detection 240 beats per minute per cardiology's recommendations. As per Cardiology wants this has been completed patient is cleared for discharge and needs to follow up with Cardiology within 1-2 weeks. Instructed patient will be getting discharged today and need to follow up with PCP within 3-5 days upon discharge, along with following up with Cardiology as recommended. Both patient and family member voiced understanding and agreed with plan. The patient was treated for the following problems: ACTIVE PROBLEM LIST FOR THE HOSPITALIZATION: Acute on chronic diastolic heart failure exacerbation with last EF of 50-55% 02/2024 POA, resolved Paroxysmal atrial fibrillation on chronic anticoagulation with the Eliquis, s table Conduction system disease with bradycardia status post [facility] PM (2019), had interrogated and reprogrammed to high ventricular rate detection to 140 beats per minute CHRONIC PROBLEMS: continue previous management per PCP unless otherwise indicated ART INSTRUCTOR FINDINGS/RECOMMENDATIONS: Cardiology's recommendations 1. I believe the most likely etiology of this patient's symptoms was a transient increase in her heart rate. This would not have been picked up by the pacemaker given the nominal high ventricular rate detection of 170 beats per minute. 2. We will reinterrogate the patient's device and reprogrammed the high ventricular rate detection to 140 beats per minute 3. The patient is on chronic anticoagulation so pulmonary embolism is unlikely 4. Once the devices reprogrammed and then the patient can be discharged 5. Follow up with Dr. Castillo in 2-4 weeks. PROCEDURES: as mentioned above DISCHARGE MEDICATIONS: Pt hemodynamically stable and afebrile at time of discharge. PCP notified of patients admission, hospital course and discharge. Continued Medications: Alendronate Sodium (Alendronate Sodium) 70 Mg Tablet 1 TAB PO QWEEK for 28 Days, #4 TAB 0 Refills in the morning, at least 30 minutes before the first food, beverage, or medication of the day Apixaban (Eliquis) 2.5 Mg Tablet 1 TAB PO BID for 30 Days, #60 TAB 0 Refills Atorvastatin Calcium (Atorvastatin Calcium) 20 Mg Tablet 1 TAB PO DAILY for 30 Days, #30 TAB 0 Refills Empagliflozin (Jardiance) 10 Mg Tablet 1 TAB PO DAILY for 30 Days, #30 TAB 0 Refills Furosemide (Furosemide) 20 Mg Tablet 20 MG PO AM, TAB Gabapentin (Gabapentin) 100 Mg Capsule 1 CAP PO TID for 30 Days, #90 CAP 0 Refills Sacubitril/Valsartan (Entresto 24 mg-26 mg Tablet) 24 Mg-26 Mg Tablet 1 TAB PO BID for 30 Days, #60 TAB 0 Refills Spironolactone (Spironolactone) 25 Mg Tablet 25 MG PO QMOWEFR, TAB Discontinued Medications: Furosemide (Furosemide) 20 Mg Tablet 1 TAB PO DAILY for 30 Days, #30 TAB 0 Refills PHYSICAL EXAM: GENERAL: alert, weak, awake oriented x 3 HEENT: EOMI, Sclera non icteric, moist mucosa NECK: Supple, no JVD, trachea midline LUNGS: Diminished breath sounds bilaterally. No wheezes HEART: Regular rate and rhythm. Normal S1 and S2, without murmurs ABD: Abdomen soft, nontender. Bowel sounds present EXT: No clubbing cyanosis, +1 pitting edema to BLE NEURO: Alert and oriented to person, follows commands FOLLOW-UP: Follow-up with PCP in 2-3 days Follow up with Cardiology 1-2 weeks RECOMMENDATIONS: See Discharge Instructions This case was seen and discussed with my supervising physician. 30 minutes spent on discharge process, including evaluation of the patient, discussion with nursing staff, medication reconciliation and follow-up appointments LESLEY LAGUERRE Mar 21, 2024 14:12
== END 2024-03-21 15:00 | disposition home or self-care (01) ==
LOC: EDH 06:51 → EDHIP 09:58 → 4AH 21:24
PROVIDERS: ADMIT Internal Medicine Critical Care Medicine; ATTEND Internal Medicine Critical Care Medicine
DX: I13.0 Hypertensive heart and chronic kidney disease with heart failure and stage 1 through stage 4 chronic kidney disease, or unspecified chronic kidney disease (principal); Z20.822 Contact with and (suspected) exposure to COVID-19; I50.43 Acute on chronic combined systolic (congestive) and diastolic (congestive) heart failure; N18.32 Chronic kidney disease, stage 3b; E78.5 Hyperlipidemia, unspecified; D63.1 Anemia in chronic kidney disease; I25.2 Old myocardial infarction; I48.0 Paroxysmal atrial fibrillation; N17.9 Acute kidney failure, unspecified; M81.0 Age-related osteoporosis without current pathological fracture; I35.1 Nonrheumatic aortic (valve) insufficiency; I45.9 Conduction disorder, unspecified; I44.0 Atrioventricular block, first degree; Z79.01 Long term (current) use of anticoagulants; Z95.0 Presence of cardiac pacemaker; Z79.899 Other long term (current) drug therapy; Z98.890 Other specified postprocedural states; Z96.652 Presence of left artificial knee joint
CPT/HCPCS: 96374; 96376 ×4; 82550 ×4; 83735 ×3; 84484 ×4; 80048 ×2; 83880 ×2; 85025 ×2; 85610; 85730; 87804 ×2; 81001; 36415 ×2; 87635; 71045 ×2; 99291; 93005; 94640; 84443; 84100; G0378 ×53; J1940 ×6; 94664; 96365; 96366

== ENCOUNTER 2024-04-11 11:03 | Emergency (ER) | payer OTHER, MEDICARE ==
[~2024-04-11] VITALS: Ht 162.6 cm; Wt 68.0 kg
[~2024-04-11 11:03] MED LIST changes: -ACET-2079 PO; +ALEN70TA80 PO; +APIX2.5T PO; -APIX5TAB PO; -ASCO100031 PO; -CALC1TAB3 PO; -CHOL100040 PO; -CIPR-279 PO; -CYAN50009 PO; -DICL100G60 TP; -FAMO20TA8 PO; -FERR-82 PO; -FISH1CAP50 PO; -FOLI0.8C PO; -FURO-152 PO; +FURO20TA4 PO; +GABA-529 PO; -MECL-226 PO; -MULT-1296 PO; -MUPI22OI2 TP; -OLOP2.5D16 OU; +SACU1TAB PO; -SACU1TAB7 PO; +SPIR25TA6 PO; -VALA100031 PO; -VITA1CAP85 PO
--- NOTE | 2024-04-11 11:58 | HMCIMG ---
CT HEAD/BRAIN W/O CONTRAST INDICATION: Dizziness TECHNIQUE: CT HEAD/BRAIN W/O CONTRAST. CT was performed with one or more of the following dose reduction techniques: Automated exposure control, adjustment of the mA and/or kV according to the patient's size, or use of the iterative reconstruction technique. Comparison: 10/22/2019 FINDINGS: Cerebral atrophy seen. Nonspecific periventricular and subcortical white matters changes are noted likely representing small vessel ischemic changes. No midline shift or herniation. No extra axial collection. No acute intracranial bleed. The visualized paranasal sinuses and mastoid air cells are normally aerated. IMPRESSION: Diffuse atrophy. No acute intracranial bleed is seen. Nonspecific white matter changes
[2024-04-11 11:59] LABS: BASOPHILS # (AUTO) 0.02 K/uL (0.00-0.20); BASOPHILS % (AUTO) 0.3 % (0.0-5.0); EOSINOPHILS # (AUTO) 0.05 K/uL (0.00-0.70); EOSINOPHILS % (AUTO) 0.7 % (0.0-8.0); HEMATOCRIT 34.1 % (36-48); IMMATURE GRANULOCYTE ABSOLUTE 0.03 K/uL (0-1); LYMPHOCYTES # (AUTO) 1.9 K/uL (1.0-4.8); LYMPHOCYTES % (AUTO) 26.6 % (21.0-51.0); MEAN CORPUSCULAR HEMOGLOBIN 28.4 pg (27.0-33.0); MEAN CORPUSCULAR VOLUME 88.8 fL (79-99); MONOCYTES # (AUTO) 0.5 K/uL (0.1-1.0); NEUTROPHILS # (AUTO) 4.7 K/uL (1.8-7.7); PLATELET COUNT (AUTO) 189 K/uL (130-400); RED BLOOD CELL COUNT(AUTO) 3.84 MIL/uL (4.00-5.50); RED CELL DISTRIBUTION WIDTH 13.9 % (11.0-15.5); WHITE BLOOD COUNT (AUTO) 7.2 K/uL (4.8-10.8)
[2024-04-11 12:10] LABS: INR 0.96 (0.85-1.15); PROTHROMBIN TIME 10.8 SEC (9.6-11.6)
[2024-04-11 12:11] LABS: PARTIAL THROMBOPLASTIN TIME 24.9 SEC (26.3-35.5)
[2024-04-11 12:15] LABS: ALBUMIN 3.2 g/dL (3.5-5.0); BILIRUBIN,DIRECT 0.1 mg/dL (0.0-0.3); BILIRUBIN,TOTAL 0.6 mg/dL (0.2-1.0); CREATININE 1.5 mg/dL (0.5-1.0); POTASSIUM 3.8 mmol/L (3.5-5.1); TOTAL PROTEIN, SERUM 6.7 g/dL (6.0-8.3)
[2024-04-11 12:22] LABS: INFLUENZA TYPE A Negative For Type A (NEGATIVE); INFLUENZA TYPE B Negative For Type B (NEGATIVE)
--- NOTE | 2024-04-11 12:29 | HMCIMG ---
INDICATION: Shortness of breath TECHNIQUE: CHEST 1VW COMPARISON: 03/20/2024 FINDINGS/IMPRESSION: Prominent bilateral interstitial markings which may represent bronchitis or vascular congestion in the proper clinical setting. Mild cardiomegaly with left-sided pacemaker. Mild degenerative changes of the spine. The visualized upper abdomen appears unremarkable.
[2024-04-11 12:36] LABS: APPEARANCE,URINE CLEAR (CLEAR); BILIRUBIN,URINE NEGATIVE (NEGATIVE); COLOR,URINE COLORLESS (YELLOW); GLUCOSE, URINE (UA) 500 mg/dL (NEGATIVE); KETONES,URINE NEGATIVE (NEGATIVE); LEUKOCYTE ESTERASE ,URINE NEGATIVE Leu/uL (NEGATIVE); NITRATE,URINE NEGATIVE (NEGATIVE); OCCULT BLOOD,URINE NEGATIVE (NEGATIVE); PH,URINE 5.5 (5.0-8.0); PROTEIN,URINE NEGATIVE (NEGATIVE); UROBILINOGEN,URINE 0.2 mg/dL (0.2-1.0)
[2024-04-11 12:38] LABS: RBC,URINE 0-1 /HPF (0-1); SQUAMOUS EPITHELIAL CELL,UR RARE /HPF (0-2); WBC,URINE 0-1 /HPF (0-1)
[2024-04-11 13:00] LABS: SARS-CoV-2, RNA, NAAT NEGATIVE SARS CoV-2 (NEGATIVE)
[2024-04-11 13:17] VITALS: BP 145/58; PULSE 61; RESP 16; TEMP 98.4; O2SAT 97
--- NOTE | 2024-04-11 13:48 | ERN ---
General Chief Complaint: Dizzy/Light Headed Stated Complaint: DIZZINES Time Seen by MD: 11:10 History of Present Illness Initial Comments 88-year-old female past medical history of hypertension came in for dizziness. Patient states that she was at the [place] and when she suddenly got up from sitting position she felt dizzy. Patient otherwise denies headache changes in vision chest pain shortness for breath abdominal pain nausea vomiting diarrhea constipation weakness in upper and lower extremities. Patient was able to amb ulate without any concerns. Patient does use walker to ambulate but states that the episode only lasted for few seconds and now she feels better. Patient otherwise has no concerns. Allergies: Coded Allergies: No Known Drug Allergies (Verified Allergy, 02/21/13) Home Meds Reported Medications Spironolactone (Spironolactone) 25 Mg Tablet, 25 MG PO QMOWEFR, TAB 03/19/24 Furosemide (Furosemide) 20 Mg Tablet, 20 MG PO AM, TAB 03/19/24 Gabapentin (Gabapentin) 100 Mg Capsule, 1 CAP PO TID for 30 Days, #90 CAP 0 Refills 03/19/24 Empagliflozin (Jardiance) 10 Mg Tablet, 1 TAB PO DAILY for 30 Days, #30 TAB 0 Refills 03/19/24 Alendronate Sodium (Alendronate Sodium) 70 Mg Tablet, 1 TAB PO QWEEK for 28 Days, #4 TAB 0 Refills in the morning, at least 30 minutes before the first food, beverage, or medication of the day 03/19/24 Atorvastatin Calcium (Atorvastatin Calcium) 20 Mg Tablet, 1 TAB PO DAILY for 30 Days, #30 TAB 0 Refills 03/19/24 Sacubitril/Valsartan (Entresto 24 mg-26 mg Tablet) 24 Mg-26 Mg Tablet, 1 TAB PO BID for 30 Days, #60 TAB 0 Refills 03/19/24 Apixaban (Eliquis) 2.5 Mg Tablet, 1 TAB PO BID for 30 Days, #60 TAB 0 Refills 03/19/24 Past Medical History Past Medical History: High Cholesterol, Heart Disease, Other Medical History Other: PACEMAKER Past Surgical History: None Surgical History Other: 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 13 point review of systems assessed and all negative except for above. Physical Exam Physical Exam Dictation Vital Signs reviewed General Appearance: Alert, oriented x 3, no acute distress, well developed, nourished. Head and Face: non-traumatic. Eyes: PERRL, pink conjunctivas, eyelid no trauma, anterior chamber with arcus senilis. Ears: Pinnas intact and no signs of trauma or erythema ear canals clear and no discharge TM no erythema Nose: No discharge, no bleeding. Oropharynx: Mouth normal, tongue pink, pharynx clear,no erythema, tonsils no exudates, no abscesses noted, mucous membrane moist Neck: Supple, non-tender, no thyromegaly, no masses, no JVD, no bruits Breast:Deferred Chest:No tenderness, no crepitus, no paradoxical movement, no retractions Lungs:Clear, well-ventilated, symmetric, no rales, no wheezing, no rhonchi, no stridor, good breath sounds bilaterally Heart: Regular rate, regular rhythm, no murmur, no gallops Vascular: no peripheral edema, Abdomen: Soft, positive bowel sounds, nondistended, no guarding, nontender, no rebound, no masses no hepatomegaly, no splenomegaly, no Schmidt's sign, no hernias. Rectal: Deferred Genital: Deferred Neurological: Normal speech, motor function intact, sensory function intact Musculoskeletal: Neck nontender, full range of motion, back nontender, full range of motion, Extremities: nontender, full range of motion Skin: Color pink, dry, no turgor, no rash, no lacerations, no abrasions, no contusions. Lymphatic: Deferred Results Laboratory and Microbiology Lab and Micro Result Laboratory Tests Test 04/11/24 11:47 04/11/24 11:55 04/11/24 12:25 White Blood Count 7.2 K/uL (4.8-10.8) Red Blood Count 3.84 MIL/uL (4.00-5.50) L Hemoglobin 10.9 g/dL (12.0-16.0) L Hematocrit 34.1 % (36-48) L Mean Corpuscular Volume 88.8 fL (79-99) Mean Corpuscular Hemoglobin 28.4 pg (27.0-33.0) Mean Corpuscular Hemoglobin Concent 32.0 g/dL (32.0-36.0) Red Cell Distribution Width 13.9 % (11.0-15.5) Platelet Count 189 K/uL (130-400) Mean Platelet Volume 10.9 fL (7.5-10.5) H Immature Granulocyte % (Auto) 0.4 % (0-1) Neutrophils (%) (Auto) 65.0 % (40.0-77.0) Lymphocytes (%) (Auto) 26.6 % (21.0-51.0) Monocytes (%) (Auto) 7.0 % (3.0-13.0) Eosinophils (%) (Auto) 0.7 % (0.0-8.0) Basophils (%) (Auto) 0.3 % (0.0-5.0) Neutrophils # (Auto) 4.7 K/uL (1.8-7.7) Lymphocytes # (Auto) 1.9 K/uL (1.0-4.8) Monocytes # (Auto) 0.5 K/uL (0.1-1.0) Eosinophils # (Auto) 0.05 K/uL (0.00-0.70) Basophils # (Auto) 0.02 K/uL (0.00-0.20) Absolute Immature Granulocyte (auto 0.03 K/uL (0-1) Nucleated Red Blood Cells 0.0 % (0.0-0.19) Prothrombin Time 10.8 SEC (9.6-11.6) Prothromb Time International Ratio 0.96 (0.85-1.15) Activated Partial Thromboplast Time 24.9 SEC (26.3-35.5) L Sodium Level 145 mmol/L (136-145) Potassium Level 3.8 mmol/L (3.5-5.1) Chloride Level 107 mmol/L (101-111) Carbon Dioxide Level 32 mmol/L (21-32) Blood Urea Nitrogen 24 mg/dL (7-18) H Creatinine 1.5 mg/dL (0.5-1.0) H Glomerular Filtration Rate Calc 33 mL/min (>90) Random Glucose 122 mg/dL (70-105) H Lactic Acid Level 1.9 mmol/L (0.8-2.5) Total Calcium 9.1 mg/dL (8.5-10.1) Total Bilirubin 0.6 mg/dL (0.2-1.0) Direct Bilirubin 0.1 mg/dL (0.0-0.3) Aspartate Amino Transf (AST/SGOT) 28 U/L (10-37) Alanine Aminotransferase (ALT/SGPT) 14 U/L (12-78) Alkaline Phosphatase 58 U/L (50-136) Total Creatine Kinase 60 U/L (21-232) # Troponin I High Sensitivity 41 ng/L (4-50) Total Protein 6.7 g/dL (6.0-8.3) Albumin 3.2 g/dL (3.5-5.0) L Procalcitonin < 0.05 ng/mL (0.05-0.5) L Influenza Type A Antigen Negative For Type A Influenza Type B Antigen Negative For Type B SARS-CoV-2, RNA, NAAT NEGATIVE SARS CoV-2 Urine Color COLORLESS (YELLOW) Urine Appearance CLEAR (CLEAR) Urine pH 5.5 (5.0-8.0) Urine Specific [place] 1.008 (1.001-1.031) Urine Protein NEGATIVE mg/dL (NEGATIVE) Urine Glucose (UA) 500 mg/dL (NEGATIVE) H Urine Ketones NEGATIVE mg/dL (NEGATIVE) Urine Occult Blood NEGATIVE (NEGATIVE) Urine Nitrate NEGATIVE (NEGATIVE) Urine Bilirubin NEGATIVE mg/dL (NEGATIVE) Urine Urobilinogen 0.2 mg/dL (0.2-1.0) Urine Leukocyte Esterase NEGATIVE [place]/uL Urine RBC 0-1 /HPF (0-1) Urine WBC 0-1 /HPF (0-1) Urine Squamous Epithelial Cells RARE /HPF (0-2) Urine Bacteria None /HPF (None Seen) MDM MDM: Differential diagnosis: There are no social concerns with this patient. Prescription drug management Prescriptions will include: Medical management and examination interpretation discussions were had by me with other qualified healthcare professionals as indicated for the patient's care. Patient is re-evaluated and says that she no longer feels dizzy. Patient was able to ambulate with a walker and has no concerns. Patient also tolerated p.o. without any problems. Patient is advised to follow up with the primary care physician. Patient along with her daughter who is at bedside understand and agree with plan of care. ED Course Orders Procedure Category Date Status Time 12 Lead Ekg Tracing- EKG 04/11/24 Logged Technical 11:17 Cbc With Differential LAB 04/11/24 Complete 11:17 Basic Metabolic Panel LAB 04/11/24 Complete 11:17 Covid Rna Naat LAB 04/11/24 Complete 11:17 Creatine Kinase, Total LAB 04/11/24 Complete 11:17 Hepatic Function Panel LAB 04/11/24 Complete 11:17 Influenza Type A & B, LAB 04/11/24 Complete Rapid 11:17 Lactic Acid LAB 04/11/24 Complete 11:17 Procalcitonin LAB 04/11/24 Complete 11:17 Pt And Ptt LAB 04/11/24 Complete 11:17 Troponin I High LAB 04/11/24 Complete Sensitivity 11:17 Urinalysis LAB 04/11/24 Complete W/Microscopic 11:17 Chest 1vw RAD 04/11/24 Resulted 11:17 Ct Head/Brain W/O CT 04/11/24 Resulted Contrast 11:17 Vital Signs Date Time Temp Pulse Resp B/P (MAP) Pulse Ox O2 Delivery O2 Flow Rate FiO2 04/11/24 13:17 98.4 61 16 145/58 97 Room Air* 0 04/11/24 11:59 98.2 54 16 155/50 97 Room Air* 0 04/11/24 11:06 98.8 63 20 175/63 96 Room Air 0 DX & DISP Disposition: Discharge Departure Impression: Primary Impression: Dizziness Condition: Stable Referrals: MIKA MARCELO DO (PCP) LUKE JONES MD Apr 11, 2024 13:48
--- NOTE | 2024-04-12 08:37 | EKG ---
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
== END 2024-04-11 14:09 | disposition home or self-care (01) ==
LOC: EDH 11:03
DX: R42 Dizziness and giddiness (principal); E78.00 Pure hypercholesterolemia, unspecified; Z79.01 Long term (current) use of anticoagulants; Z79.84 Long term (current) use of oral hypoglycemic drugs; Z79.899 Other long term (current) drug therapy; Z95.0 Presence of cardiac pacemaker; Z20.822 Contact with and (suspected) exposure to COVID-19
CPT/HCPCS: 36415; 70450; 71045; 80048; 80076; 81001; 82550; 83605; 84145; 84484; 85025; 85610; 85730; 87635; 87804; 93005; 99285

== ENCOUNTER 2024-05-20 20:17 | Emergency (ER) | payer OTHER, MEDICARE ==
[~2024-05-20] VITALS: Ht 172.7 cm; Wt 74.8 kg
[2024-05-20 21:06] LABS: BASOPHILS # (AUTO) 0.03 K/uL (0.00-0.20); BASOPHILS % (AUTO) 0.4 % (0.0-5.0); EOSINOPHILS # (AUTO) 0.14 K/uL (0.00-0.70); EOSINOPHILS % (AUTO) 1.7 % (0.0-8.0); HEMATOCRIT 32.3 % (36-48); IMMATURE GRANULOCYTE ABSOLUTE 0.01 K/uL (0-1); LYMPHOCYTES # (AUTO) 4.2 K/uL (1.0-4.8); MEAN CORPUSCULAR HEMOGLOBIN 27.7 pg (27.0-33.0); MEAN CORPUSCULAR HGB CONC 31.6 g/dL (32.0-36.0); MEAN CORPUSCULAR VOLUME 87.8 fL (79-99); MONOCYTES # (AUTO) 0.7 K/uL (0.1-1.0); MONOCYTES % (AUTO) 8.3 % (3.0-13.0); NEUTROPHILS % (AUTO) 37.5 % (40.0-77.0); PLATELET COUNT (AUTO) 192 K/uL (130-400); RED BLOOD CELL COUNT(AUTO) 3.68 MIL/uL (4.00-5.50); RED CELL DISTRIBUTION WIDTH 14.4 % (11.0-15.5); WHITE BLOOD COUNT (AUTO) 8.1 K/uL (4.8-10.8)
[2024-05-20 21:15] LABS: CREATININE 1.4 mg/dL (0.5-1.0); POTASSIUM 4.2 mmol/L (3.5-5.1)
--- NOTE | 2024-05-20 21:16 | ERN ---
ED Note History of Present Illness Stated Complaint: SOB Chief Complaint: Shortness of Breath Time Seen by MD: 20:32 Dictation: Ms. Ivan is a 88 year old female with history of diastolic heart failure with EF 50-55%, conduction delay/pacemaker placement, atrial fibrillation on chronic anticoagulation with Eliquis, hypertension, hyperlipidemia, CKD, and anemia who presented to the emergency department this evening for evaluation of shortness of breath. She states that she has been experiencing general weakness and intermittent dizziness for the past two weeks. She states this afternoon she has been experiencing worsening fatigue as well as shortness of breath; especially when lying flat. She denies having fever, chills, chest pain, palpitations, edema, cough, abdominal pain, nausea, vomiting, diarrhea, dysuria, headache, vision changes, or focal weakness/paresthesia. She states she did take her p.m. doses of medications at 1900 (Entresto). Allergies: Coded Allergies: No Known Drug Allergies (Verified Allergy, 02/21/13) Home Meds Reported Medications Spironolactone (Spironolactone) 25 Mg Tablet, 25 MG PO QMOWEFR, TAB 03/19/24 Furosemide (Furosemide) 20 Mg Tablet, 20 MG PO AM, TAB 03/19/24 Gabapentin (Gabapentin) 100 Mg Capsule, 1 CAP PO TID for 30 Days, #90 CAP 0 Refills 03/19/24 Empagliflozin (Jardiance) 10 Mg Tablet, 1 TAB PO DAILY for 30 Days, #30 TAB 0 Refills 03/19/24 Alendronate Sodium (Alendronate Sodium) 70 Mg Tablet, 1 TAB PO QWEEK for 28 Days, #4 TAB 0 Refills in the morning, at least 30 minutes before the first food, beverage, or medication of the day 03/19/24 Atorvastatin Calcium (Atorvastatin Calcium) 20 Mg Tablet, 1 TAB PO DAILY for 30 Days, #30 TAB 0 Refills 03/19/24 Sacubitril/Valsartan (Entresto 24 mg-26 mg Tablet) 24 Mg-26 Mg Tablet, 1 TAB PO BID for 30 Days, #60 TAB 0 Refills 03/19/24 Apixaban (Eliquis) 2.5 Mg Tablet, 1 TAB PO BID for 30 Days, #60 TAB 0 Refills 03/19/24 Past Medical History Past Medical History: High Cholesterol, Heart Disease, Other Additional Past Medical Hx: PACEMAKER Surgical History: Pacer/AICD, Other Surgical History Other: 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 Reports fatigue and general weakness EYES: Patient denies any visual symptoms. EARS, NOSE, AND THROAT: No difficulties with hearing. No symptoms of rhinitis or sore throat. CARDIOVASCULAR: Patient denies chest pains, palpitations, edema. RESPIRATORY: No dyspnea on exertion, no wheezing or cough. Reports shortness of breath; states she can not rest laying down. GI: No nausea, vomiting, diarrhea, constipation, abdominal pain, hematochezia or melena. : No urinary hesitancy or dribbling. No nocturia or urinary frequency. No abnormal urethral discharge. MUSCULOSKELETAL: No myalgias or arthralgias. NEUROLOGIC: No chronic headaches, no seizures. Patient denies numbness, tingling or weakness. Reports intermittent dizziness for the past two weeks. PSYCHIATRIC: Patient denies problems with mood disturbance. No problems with anxiety. ENDOCRINE: No excessive urination or excessive thirst. DERMATOLOGIC: Patient denies any rashes or skin changes. Initial Vital Sign VS Vital Signs Date Time Temp Pulse Resp B/P (MAP) Pulse Ox O2 Delivery O2 Flow Rate FiO2 05/20/24 20:18 98.1 57 16 180/58 98 Room Air 05/20/24 20:35 0 21 Physical Exam Dictation Vital signs: Reviewed. Afebrile Constitutional: No acute distress. Quiet. Head/Face: Normocephalic, atraumatic. Eyes: Periorbital areas with no swelling, redness, or edema. Lids and lashes are normal. Conjunctival injection is absent. Sclera anicteric. Pupils equal, round, reactive to light. ENT: Pinnas intact and no signs of trauma or erythema. Ear canals clear and no discharge. TMs no erythema. No nasal discharge or bleeding noted. Oropharynx with no exudate, redness, swelling, masses, exudates, or evidence of obstruction. Uvula midline. Mucous membranes moist. Neck: Trachea midline, no masses palpated, and no cervical lymphadenopathy. No swelling. Supple, full range of motion. Chest/Axilla: No tenderness, no crepitus, no paradoxical movement, no retractions. Cardiovascular: Regular rate, regular rhythm, no murmur, no gallops. Symmetric pulses. No peripheral edema. Twelve lead EKG was obtained; reflects a ventricular paced rhythm rate [address] elevation. BP elevated at 180/58 Respiratory: Respirations even and unlabored. Lung sounds clear; no wheezes, ra les or rhonchi. Room air SpO2 98%. Gastrointestinal: Inspection is normal. No distention is appreciated. Bowel sounds are normal. No mass or organomegaly . There is no tenderness. No rebound. No rigidity. No voluntary or involuntary guarding. No Schmidt's sign. Neurological: Normal speech, gross motor function intact, gross sensory function intact. No focal weakness/Paresthesia. Speech is clear. GCS 15. Musculoskeletal/Extremities: All extremities have full range of motion, no pain or tenderness on palpation. Symmetric pulses. Integumentary: Intact. Skin is normal color, warm and dry. Cap refill less than 3 seconds. Results (Laboratory/Radiology) Laboratory/Radiology Laboratory Tests Test 05/20/24 21:00 05/20/24 21:25 White Blood Count 8.1 K/uL (4.8-10.8) Red Blood Count 3.68 MIL/uL (4.00-5.50) L Hemoglobin 10.2 g/dL (12.0-16.0) L Hematocrit 32.3 % (36-48) L Mean Corpuscular Volume 87.8 fL (79-99) Mean Corpuscular Hemoglobin 27.7 pg (27.0-33.0) Mean Corpuscular Hemoglobin Concent 31.6 g/dL (32.0-36.0) L Red Cell Distribution Width 14.4 % (11.0-15.5) Platelet Count 192 K/uL (130-400) Mean Platelet Volume 11.3 fL (7.5-10.5) H Immature Granulocyte % (Auto) 0.1 % (0-1) Neutrophils (%) (Auto) 37.5 % (40.0-77.0) L Lymphocytes (%) (Auto) 52.0 % (21.0-51.0) H Monocytes (%) (Auto) 8.3 % (3.0-13.0) Eosinophils (%) (Auto) 1.7 % (0.0-8.0) Basophils (%) (Auto) 0.4 % (0.0-5.0) Neutrophils # (Auto) 3.0 K/uL (1.8-7.7) Lymphocytes # (Auto) 4.2 K/uL (1.0-4.8) Monocytes # (Auto) 0.7 K/uL (0.1-1.0) Eosinophils # (Auto) 0.14 K/uL (0.00-0.70) Basophils # (Auto) 0.03 K/uL (0.00-0.20) Absolute Immature Granulocyte (auto 0.01 K/uL (0-1) Nucleated Red Blood Cells 0.0 % (0.0-0.19) Sodium Level 140 mmol/L (136-145) Potassium Level 4.2 mmol/L (3.5-5.1) Chloride Level 102 mmol/L (101-111) Carbon Dioxide Level 33 mmol/L (21-32) H Blood Urea Nitrogen 24 mg/dL (7-18) H Creatinine 1.4 mg/dL (0.5-1.0) H Glomerular Filtration Rate Calc 36 mL/min (>90) Random Glucose 111 mg/dL (70-105) H Total Calcium 9.2 mg/dL (8.5-10.1) Total Creatine Kinase 36 U/L (21-232) # Troponin I High Sensitivity 39 ng/L (4-50) B-Type Natriuretic Peptide 985 pg/mL (0-100) H Troponin I < 0.05 ng/mL (0.00-0.05) Labs Reviewed?: Yes EKG Comment: EKG Interpretation: Time Reviewed: 2026 Ventricular rate: 60 bpm QRS duration: [address] segment elevation or depression. Clinical impression: Ventricular paced rhythm EKG Reviewed and interpreted by . Dr. Angela Persaud ED Course ED Course Orders Procedure Category Date Status Time Vital Signs Per CPOE 05/20/24 Transmitted Routine 20:24 B-Type Natriuretic LAB 05/20/24 Complete Peptide 20:24 Chest 1vw RAD 05/20/24 Taken 20:24 12 Lead Ekg Tracing- EKG 05/20/24 Logged Technical 20:24 Oxygen By Nc/Pulse Ox CPOE 05/20/24 Transmitted 20:24 Maintain Iv CPOE 05/20/24 Transmitted 20:24 Iv Insertion CPOE 05/20/24 Transmitted 20:24 Cardiac Monitoring CPOE 05/20/24 Transmitted 20:24 Pulse Oximetry With CPOE 05/20/24 Transmitted Vs And Prn 20:24 Cbc With Differential LAB 05/20/24 Complete 20:24 Activity: Br W/Brp CPOE 05/20/24 Transmitted With Assist 20:24 Creatine Kinase, Total LAB 05/20/24 Complete 20:24 Troponin I High LAB 05/20/24 Complete Sensitivity 20:24 Urinalysis Profile LAB 05/20/24 Logged 20:24 Troponin Poc Order LAB 05/20/24 Complete Only 20:24 Bedside Troponin-I LAB.ER 05/20/24 In Process (Poc) 20:24 Basic Metabolic Panel LAB 05/20/24 Complete 20:24 Covid Rna Naat LAB 05/20/24 In Process 21:00 Influenza Type A & B, LAB 05/20/24 In Process Rapid 21:00 Vital Signs Date Time Temp Pulse Resp B/P (MAP) Pulse Ox O2 Delivery O2 Flow Rate FiO2 05/20/24 20:35 98.1 57 16 180/58 Room Air* 0 21 05/20/24 20:18 98.1 57 16 180/58 98 Room Air ED course. Initial blood pressure elevated to 180/58; repeat improved. Twelve lead EKG reflects a ventricular paced rhythm rate [address] elevation. Laboratory findings as noted below. There is no elevation of WBCs. H&H are 10.2/32.3, CO2 33, BUN/CR 24/1.14, glucose 111, troponin 39, and BNP 985. Influenza a/B and COVID are negative. Chest x-ray is unremarkable. Her chief complaint now is fatigue and general weakness. She received an additional Lasix 40 mg p.o. x1. 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 Medical Decision Making MDM MDM: Differential diagnosis: CAP, CHF exacerbation, influenza, COVID Rationale: Tests considered and ordered secondary to shared decision making include: Chest x-ray, EKG, labs Previous outside records reviewed: Old ER visits. Risk of complication and/or morbidity or mortality of patient management: None Medications-Per medication reconciliation Need for hospitalization: Patient does not meet criteria for hospitalization. Need for emergency major/minor surgery: No There are no social concerns with this patient. Prescription drug management: Continue home medications Prescriptions will include symptomatic care Patient's prior external medical records from other ER visits were reviewed by me as indicated. Prior testing and results from previous visits were reviewed. Prior tests were taken into account with medical decision making and resource utilization, independent historian/historians were used to obtain complete medical history. I independently interpreted the test that were performed, results were reviewed by me and considered findings on radiology if ordered. Medical management and examination interpretation discussions were had by me with other qualified healthcare professionals as indicated for the patient's care. DX & DISP Disposition: Discharge Departure Impression: Primary Impression: Acute exacerbation of CHF (congestive heart failure) Additional Impressions: Shortness of breath, Generalized weakness Condition: Stable Additional Instructions: Rest. Keep a log of your symptoms as well as blood pressure readings. Follow up in the next 1-[address] Corona PCP or Dr. Castillo Yarn Man. Take copies of your labs/EKG to your appointment. Return to the emergency department for any worsening of symptoms or concerns. Referrals: MIKA MARCELO DO (PCP) Time of Disposition: 21:57 GEETHA MEDRANO NP May 20, 2024 21:16
[2024-05-20 21:36] LABS: B-TYPE NATRIURETIC PEPTIDE 985 pg/mL (0-100)
[2024-05-20 21:45] LABS: SARS-CoV-2, RNA, NAAT NEGATIVE SARS CoV-2 (NEGATIVE)
[2024-05-20 21:47] LABS: INFLUENZA TYPE A Negative For Type A (NEGATIVE); INFLUENZA TYPE B Negative For Type B (NEGATIVE)
[2024-05-20] MEDS: furoSEMIDE 40 MG TABLET PO ONE (21:54)
--- NOTE | 2024-05-20 22:04 | EKG ---
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
--- NOTE | 2024-05-20 22:29 | HMCIMG ---
CHEST 1VW HISTORY: Chest pain COMPARISON: 04/11/2024 FINDINGS: A frontal projection of the chest was obtained. Mild bilateral pulmonary infiltrates are seen may be related to mild pulmonary vascular congestion with possible superimposed pneumonitis. The heart is borderline enlarged. Pacemaker is seen entering the left. Degenerative changes are seen. IMPRESSION: 1. Mild bilateral pulmonary infiltrates are seen may be related to mild pulmonary vascular congestion with possible superimposed pneumonitis.
[2024-05-20 22:41] VITALS: BP 165/66; PULSE 62; RESP 16; TEMP 98.1; O2SAT 98
== END 2024-05-20 22:42 | disposition home or self-care (01) ==
LOC: EDH 20:17
DX: I13.0 Hypertensive heart and chronic kidney disease with heart failure and stage 1 through stage 4 chronic kidney disease, or unspecified chronic kidney disease (principal); N18.9 Chronic kidney disease, unspecified; I50.9 Heart failure, unspecified; E78.00 Pure hypercholesterolemia, unspecified; Z20.822 Contact with and (suspected) exposure to COVID-19; Z79.01 Long term (current) use of anticoagulants; Z79.84 Long term (current) use of oral hypoglycemic drugs; Z79.899 Other long term (current) drug therapy; Z95.810 Presence of automatic (implantable) cardiac defibrillator
CPT/HCPCS: 36415; 71045; 80048; 82550; 83880; 84484; 85025; 87635; 87804; 93005; 99285

== ENCOUNTER → 2024-05-25 | Outpatient (CLI) | payer OTHER, MEDICARE ==
--- NOTE | 2024-05-25 12:47 | HMCIMG ---
CHEST 2VWS HISTORY: CHF COMPARISON: 05/20/2024 FINDINGS: Frontal and lateral projections of the chest were obtained. There are prominent interstitial markings with possible superimposed infiltrates. The heart is not enlarged. Aortic calcifications are seen. There is dextroscoliosis. Pacemaker is seen entering from the left. Degenerative changes are seen of the thoracolumbar spine. IMPRESSION: 1. There are prominent interstitial markings.
== END | disposition home or self-care (01) ==
LOC: RAH 10:31
PROVIDERS: ATTEND Internal Medicine Cardiovascular Disease
DX: J84.9 Interstitial pulmonary disease, unspecified (principal); I50.32 Chronic diastolic (congestive) heart failure; I70.0 Atherosclerosis of aorta; M47.815 Spondylosis without myelopathy or radiculopathy, thoracolumbar region; M41.80 Other forms of scoliosis, site unspecified
CPT/HCPCS: 71046

== ENCOUNTER → 2024-08-24 | Outpatient (CLI) | payer OTHER, MEDICAID ==
--- NOTE | 2024-08-24 13:40 | HMCIMG ---
Exam Type: CHEST 2VWS Clinical Information: hronic systolic (congestive) heart failure Comparison: None Findings: The lungs are clear of infiltrates. The heart is enlarged in size. The bony and soft tissue structures of the chest are unremarkable. Left cardiac pacemaker is noted with leads in place. Impression: Clear lungs.
== END | disposition home or self-care (01) ==
LOC: RAH 10:57
PROVIDERS: ATTEND Internal Medicine Cardiovascular Disease
DX: I50.22 Chronic systolic (congestive) heart failure (principal); I51.7 Cardiomegaly; Z95.0 Presence of cardiac pacemaker
CPT/HCPCS: 71046

== ENCOUNTER 2024-11-06 19:49 | Emergency (ER) | payer OTHER, MEDICAID ==
[~2024-11-06] VITALS: Ht 175.3 cm; Wt 75.3 kg
--- NOTE | 2024-11-06 19:57 | ERN ---
ED Note History of Present Illness Stated Complaint: LOOSE TOOTH, BLEEDING, ON ELIQUIS patient comes because she did have any tooth extraction. Last week. And she would eat a hard object. Ate some hard food. And then she had some mild bleeding at the anterior lowerh. No problems eating breathing Chief Complaint: Dental Problem Time Seen by MD: 19:56 Allergies: Coded Allergies: No Known Drug Allergies (Verified Allergy, 02/21/13) Home Meds Reported Medications Spironolactone (Spironolactone) 25 Mg Tablet, 25 MG PO QMOWEFR, TAB 03/19/24 Furosemide (Furosemide) 20 Mg Tablet, 20 MG PO AM, TAB 03/19/24 Gabapentin (Gabapentin) 100 Mg Capsule, 1 CAP PO TID for 30 Days, #90 CAP 0 Refills 03/19/24 Empagliflozin (Jardiance) 10 Mg Tablet, 1 TAB PO DAILY for 30 Days, #30 TAB 0 Refills 03/19/24 Alendronate Sodium (Alendronate Sodium) 70 Mg Tablet, 1 TAB PO QWEEK for 28 Days, #4 TAB 0 Refills in the morning, at least 30 minutes before the first food, beverage, or medication of the day 03/19/24 Atorvastatin Calcium (Atorvastatin Calcium) 20 Mg Tablet, 1 TAB PO DAILY for 30 Days, #30 TAB 0 Refills 03/19/24 Sacubitril/Valsartan (Entresto 24 mg-26 mg Tablet) 24 Mg-26 Mg Tablet, 1 TAB PO BID for 30 Days, #60 TAB 0 Refills 03/19/24 Apixaban (Eliquis) 2.5 Mg Tablet, 1 TAB PO BID for 30 Days, #60 TAB 0 Refills 03/19/24 Past Medical History Past Medical History: High Cholesterol, Heart Disease, Other Additional Past Medical Hx: PACEMAKER Surgical History: Pacer/AICD, Other Surgical History Other: 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 Family History: Negative Social History: Lives with family History: Not Applicable Review of System Dictation Constitutional: Negative for fever,chills, and weight loss Eyes: Negative for injury, pain,redness, and discharge ENT: Negative for injury,pain or swelling Cardiovascular: Negative for chest pain, palpitations, and edema Respiratory: Negative for shortness of breath, cough, and wheezing, Abdomen/GI: Negative for abdominal pain, nausea, vomiting, diarrhea, and constipation Back: Negative for injury and pain : Negative for injury, bleeding and discharge MS/Extremity: Negative for injury and deformity Skin: Negative for rash, and discoloration Neuro: Negative for headache, weakness, numbness, tingling, and seizure Psych: Negative for suicide ideation, homicidal ideation, and hallucinations Initial Vital Sign VS Vital Signs Date Time Temp Pulse Resp B/P (MAP) Pulse Ox O2 Delivery O2 Flow Rate FiO2 11/06/24 19:52 97.9 60 18 169/56 99 Room Air Physical Exam Dictation General: awake, alert, NAD Head/Face: Normocephalic, atraumatic Eyes: PERRL, EOMI, vision at baseline ENT: oral cavity clear, TMs clear, no signs of infection Neck: Trachea midline, supple, no nuchal rigidity Cardiovascular: RRR, normal S1/S2, No MRGs, no JVD Respiratory: CTAB, no respiratory distress, No rales or wheezes Abdomen: Soft, non-tender, non-distended, normal bowel sounds, no guarding or rebound. Skin: Warm, dry, normal turgor, no rash MS/Extremity: Pulses equal, no cyanosis, neurovascular intact, FROM Neuro: COAx4, GCS 15, strength 5/5, CN 2-12 intact, normal cerebellar exam, normal gait, Psych: Normal behavior, mood, and affect normal ED Course ED Course Vital Signs Date Time Temp Pulse Resp B/P (MAP) Pulse Ox O2 Delivery O2 Flow Rate FiO2 11/06/24 19:52 97.9 60 18 169/56 99 Room Air Medical Decision Making MDM CAT the nurse was present the whole time. Bleeding has already stopped with a normal gauze with the family gave. We gave some quick clot and also some for the road. I did speak they needs see a dentist and/or oral maxillofacial surgery for definitive management no signs of airway compromise at that has point in the no problems eating breathing speaking swallowing the patient has a already able to interact with the exam that has no currently active bleeding MDM: Differential diagnosis: Rationale: Tests considered and ordered secondary to shared decision making include: Previous outside records reviewed: Old ER visits. Risk of complication and/or morbidity or mortality of patient management: None Medications-Per medication reconciliation Need for hospitalization: Patient does not meet criteria for hospitalization. Need for emergency major/minor surgery: No There are no social concerns with this patient. Prescription drug management Prescriptions will include symptomatic care Patient's prior external medical records from other ER visits were reviewed by me as indicated. Prior testing and results from previous visits were reviewed. Prior tests were taken into account with medical decision making and resource utilization, independent historian/historians were used to obtain complete medical history. I independently interpreted the test that were performed, results were reviewed by me and considered findings on radiology if ordered. Medical management and examination interpretation discussions were had by me with other qualified healthcare professionals as indicated for the patient's c are. DX & DISP Disposition: Discharge Departure Impression: Primary Impression: Gums, bleeding Condition: Stable Referrals: MIKA MARCELO DO (PCP) JG FONTAINE MD Nov 06, 2024 19:57
[2024-11-06 20:35] VITALS: BP 159/84; PULSE 79; RESP 17; TEMP 98.2; O2SAT 97
== END 2024-11-06 20:40 | disposition home or self-care (01) ==
LOC: EDH 19:49
DX: K06.8 Other specified disorders of gingiva and edentulous alveolar ridge (principal); E78.00 Pure hypercholesterolemia, unspecified; Z79.01 Long term (current) use of anticoagulants; Z79.84 Long term (current) use of oral hypoglycemic drugs; Z79.899 Other long term (current) drug therapy; Z95.810 Presence of automatic (implantable) cardiac defibrillator
CPT/HCPCS: 99282